=== PATIENT | female | born 1965 | race Caucasian/White ===

== ENCOUNTER 2017-11-29 18:15 | Emergency (ER) | payer MEDICAID ==
[~2017-11-29] VITALS: Ht 160 cm; Wt 65.0 kg
[~2017-11-29 18:15] MED LIST: NO HOME MEDS
[2017-11-29 18:55] LABS: CLARITY,URINE CLOUDY (Clear); COLOR,URINE AMBER (Yellow); GLUCOSE, URINE NEGATIVE (Neg); KETONES,URINE TRACE mg/dl (Neg); LEUKOCYTE ESTERASE ,URINE MODERATE (Neg); NITRITES, URINE NEGATIVE (Neg); OCCULT BLOOD,URINE TRACE-LYSED (Neg); PH,URINE 5.5 (4.8-8.0); PROTEIN,URINE NEGATIVE (Neg); UA COLLECTION TYPE CLN CATCH MIDSTREAM
[2017-11-29 19:08] LABS: BACTERIA,URINE 2+ /HPF (Neg); MUCUS STRANDS MANY /LPF (Neg); RBC,URINE 0-2 /HPF (0-2); SQUAMOUS EPITHELIAL CELL,UR MANY /LPF (FEW)
[2017-11-29 19:09] LABS: TRICHOMONAS,URINE MOD /HPF (NEGATIVE)
[2017-11-29 19:19] VITALS: BP 129/87
[2017-11-29 20:06] LABS: BASOPHILS # (AUTO) 0.1 X10'3 (0-0.2); EOSINOPHILS # (AUTO) 0.1 X10'3 (0-0.9); EOSINOPHILS % (AUTO) 1.9 % (0-6); HEMATOCRIT 41.2 % (35.0-45.0); LYMPHOCYTES # (AUTO) 1.4 X10'3 (1.1-4.8); LYMPHOCYTES % (AUTO) 23.6 % (21-51); MEAN CORPUSCULAR HEMOGLOBIN 30.2 PG (27.0-31.0); MEAN CORPUSCULAR HGB CONC 34.1 % (33.0-36.5); MEAN CORPUSCULAR VOLUME 88.7 FL (78-98); MEAN PLATELET VOLUME 6.7 FL (7.4-10.4); MONOCYTES # (AUTO) 0.7 X10'3 (0-0.9); MONOCYTES % (AUTO) 11.3 % (2-12); NEUTROPHILS # (AUTO) 3.8 X10'3 (1.8-7.7); NEUTROPHILS % (AUTO) 62.2 % (42-75); PLATELET COUNT 226 X10'3 (140-440); RED BLOOD COUNT 4.64 X10'6 (4.20-5.60); RED CELL DISTRIBUTION WIDTH 15.3 % (11.5-14.5); WHITE BLOOD COUNT 6.1 X10'3 (4.5-11.0)
[2017-11-29 20:08] LABS: CLARITY,URINE SLIGHTLY CLOUDY (Clear); COLOR,URINE YELLOW (Yellow); GLUCOSE, URINE 100 mg/dl (Neg); KETONES,URINE TRACE mg/dl (Neg); LEUKOCYTE ESTERASE ,URINE SMALL (Neg); NITRITES, URINE NEGATIVE (Neg); OCCULT BLOOD,URINE TRACE-LYSED (Neg); PH,URINE 5.5 (4.8-8.0); PROTEIN,URINE TRACE mg/dl (Neg)
[2017-11-29 20:11] LABS: UA COLLECTION TYPE CLN CATCH MIDSTREAM
[2017-11-29 20:14] LABS: URINE AMPHETAMINE SCREEN POSITIVE (Neg); URINE BARBITUATE SCREEN NEGATIVE (Neg); URINE BENZODIAZEPINES SCREEN NEGATIVE (Neg); URINE CANNABINOID SCREEN NEGATIVE (Neg); URINE COCAINE SCREEN NEGATIVE (Neg); URINE METHADONE SCREEN NEGATIVE (Neg); URINE OPIATE SCREEN NEGATIVE (Neg); URINE PHENCYCLIDINE SCREEN NEGATIVE (Neg)
[2017-11-29 20:20] LABS: ALANINE AMINOTRANSFERASE 118 U/L (12-78); ALBUMIN/GLOBULIN RATIO 0.6 (1.1-1.5); ALKALINE PHOSPHATASE 241 IU/L (46-116); ANION GAP 8 (8-16); ASPARTATE AMINO TRANSFERASE 323 U/L (10-37); BILIRUBIN,TOTAL 0.4 MG/DL (0.1-1.0); BLOOD UREA NITROGEN 6 MG/DL (7-18); BUN/CREATININE RATIO 7.9 (6.6-38.0); CALCIUM 9.3 MG/DL (8.5-10.1); CHLORIDE 101 MMOL/L (99-107); CREATININE 0.76 MG/DL (0.40-0.90); LIPASE 143 U/L (73-393); POTASSIUM 3.8 MMOL/L (3.5-5.1); SODIUM 136 MMOL/L (135-145); TOTAL CARBON DIOXIDE 26.7 MMOL/L (24-32); TOTAL PROTEIN 8.2 G/DL (6.4-8.2); eGFR 80 ML/MIN
[2017-11-29 20:21] LABS: GLUCOSE 113 MG/DL (70-104)
[2017-11-29] MEDS ORDERED: SULF1TAB49 PO (20:34)
[2017-11-29 20:47] LABS: BACTERIA,URINE 2+ /HPF (Neg); MUCUS STRANDS MANY /LPF (Neg); RBC,URINE 0-2 /HPF (0-2); SQUAMOUS EPITHELIAL CELL,UR MANY /LPF (FEW); TRICHOMONAS,URINE FEW /HPF (NEGATIVE)
== END 2017-11-29 20:58 | disposition home or self-care (01) ==
LOC: ER 18:16
DX: N39.0 Urinary tract infection, site not specified (principal); R74.8 Abnormal levels of other serum enzymes; K21.9 Gastro-esophageal reflux disease without esophagitis; Z90.49 Acquired absence of other specified parts of digestive tract; F15.90 Other stimulant use, unspecified, uncomplicated; Z88.1 Allergy status to other antibiotic agents; Z88.5 Allergy status to narcotic agent; Z88.8 Allergy status to other drugs, medicaments and biological substances; Z79.899 Other long term (current) drug therapy; Z60.2 Problems related to living alone; Z56.0 Unemployment, unspecified
CPT/HCPCS: 36415; 80053; 80305; 81001; 83690; 85025; 99284

== ENCOUNTER 2019-01-03 10:12 | Emergency (ER) | payer MEDICAID ==
[~2019-01-03] VITALS: Ht 160 cm; Wt 65.0 kg
[2019-01-03 10:23] VITALS: BP 128/97
[2019-01-03 10:48] LABS: CLARITY,URINE SLIGHTLY CLOUDY (Clear); COLOR,URINE YELLOW (Yellow); GLUCOSE, URINE NEGATIVE (Neg); KETONES,URINE NEGATIVE (Neg); LEUKOCYTE ESTERASE ,URINE NEGATIVE (Neg); NITRITES, URINE NEGATIVE (Neg); OCCULT BLOOD,URINE NEGATIVE (Neg); PROTEIN,URINE TRACE mg/dl (Neg)
[2019-01-03 10:49] LABS: UA COLLECTION TYPE CLN CATCH MIDSTREAM
[2019-01-03] MEDS ORDERED: dexamethasone sod phosphate 10mg/ml inj IM STA (10:59)
[2019-01-03 11:00] LABS: MUCUS STRANDS MANY /LPF (Neg); SQUAMOUS EPITHELIAL CELL,UR MANY /LPF (FEW)
[2019-01-03 11:01] LABS: URINE HCG NEGATIVE (NEG)
[2019-01-03 11:02] LABS: BACTERIA,URINE 1+ /HPF (Neg); RBC,URINE 0-2 /HPF (0-2); TRANSITIONAL EPI CELLS,URINE FEW /HPF; WBC,URINE 0-4 /HPF (0-4)
[2019-01-03] MEDS ORDERED: METH4TAB81 PO (11:05)
[2019-01-03] MEDS ORDERED: TRAM50TA2 PO (11:05)
== END 2019-01-03 11:44 | disposition home or self-care (01) ==
LOC: ER 10:13
DX: S29.019A Strain of muscle and tendon of unspecified wall of thorax, initial encounter (principal); M54.5 Low back pain; K21.9 Gastro-esophageal reflux disease without esophagitis; F41.9 Anxiety disorder, unspecified; F32.9 Major depressive disorder, single episode, unspecified; F15.90 Other stimulant use, unspecified, uncomplicated; Z98.890 Other specified postprocedural states; Z90.49 Acquired absence of other specified parts of digestive tract; Z88.1 Allergy status to other antibiotic agents; Z88.5 Allergy status to narcotic agent; Z88.8 Allergy status to other drugs, medicaments and biological substances; Z56.0 Unemployment, unspecified; Z60.2 Problems related to living alone; X50.1XXA Overexertion from prolonged static or awkward postures, initial encounter; Y93.89 Activity, other specified; Y92.89 Other specified places as the place of occurrence of the external cause; Y99.8 Other external cause status
CPT/HCPCS: 81001; 81025; 96372; 99283; J1100

== ENCOUNTER 2019-04-26 10:12 | Emergency (ER) | payer MEDICAID ==
[~2019-04-26] VITALS: Ht 160 cm; Wt 66.2 kg
[~2019-04-26 10:12] MED LIST changes: +METH4TAB81 PO
[2019-04-26] MEDS ORDERED: HYDROcodone/acetaminophen 10/325mg tab PO ONE ×2 (11:55→15:10)
[2019-04-26] MEDS ORDERED: morphine 4 MG/ML inj SYRINge IM ONE (11:55)
--- NOTE | 2019-04-26 12:03 | NUR ---
PT REFUSING PAIN MEDS. PT REPORTS THAT SHE WAS GIVEN A NORCO AT APROX 10:[address] STAFFORD OFFICE.
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
[2019-04-26] MEDS ORDERED: normal saline 1000ML IV soln IVB ONE (12:35)
[2019-04-26] MEDS ORDERED: iohexol 300mg/ml 100ml inj. ONE (12:58)
[2019-04-26] MEDS ORDERED: HYDR-4353 PO (15:13)
[2019-04-26 15:23] VITALS: BP 142/93
[2019-04-26 15:25] LABS: BASOPHILS % (AUTO) 1.3 % (0-1); EOSINOPHILS # (AUTO) 0.1 X10'3 (0-0.9); EOSINOPHILS % (AUTO) 3.3 % (0-6); HEMOGLOBIN 12.5 g/dl (12.0-16.0); LYMPHOCYTES % (AUTO) 27.4 % (21-51); MEAN CORPUSCULAR HEMOGLOBIN 32.6 PG (27.0-31.0); MEAN CORPUSCULAR HGB CONC 34.6 g/dL (33.0-36.5); MEAN CORPUSCULAR VOLUME 94.4 FL (78-98); MEAN PLATELET VOLUME 7.3 FL (7.4-10.4); MONOCYTES # (AUTO) 0.4 X10'3 (0-0.9); MONOCYTES % (AUTO) 11.9 % (2-12); NEUTROPHILS # (AUTO) 2.1 X10'3 (1.8-7.7); NEUTROPHILS % (AUTO) 56.1 % (42-75); PLATELET COUNT 149 X10'3 (140-440); RED BLOOD COUNT 3.81 X10'6 (4.20-5.60); RED CELL DISTRIBUTION WIDTH 14.9 % (11.5-14.5); WHITE BLOOD COUNT 3.7 X10'3 (4.5-11.0)
== END 2019-04-26 15:25 | disposition home or self-care (01) ==
LOC: ER 10:14
DX: S30.23XA Contusion of vagina and vulva, initial encounter (principal); N95.0 Postmenopausal bleeding; K21.9 Gastro-esophageal reflux disease without esophagitis; F41.9 Anxiety disorder, unspecified; F32.9 Major depressive disorder, single episode, unspecified; F10.99 Alcohol use, unspecified with unspecified alcohol-induced disorder; F15.90 Other stimulant use, unspecified, uncomplicated; Z86.14 Personal history of Methicillin resistant Staphylococcus aureus infection; Z90.49 Acquired absence of other specified parts of digestive tract; Z98.890 Other specified postprocedural states; Z60.2 Problems related to living alone; Z56.0 Unemployment, unspecified; Z88.1 Allergy status to other antibiotic agents; Z88.5 Allergy status to narcotic agent; Z79.899 Other long term (current) drug therapy; W22.8XXA Striking against or struck by other objects, initial encounter; Y93.39 Activity, other involving climbing, rappelling and jumping off; Y92.89 Other specified places as the place of occurrence of the external cause; Y99.8 Other external cause status; Y90.9 Presence of alcohol in blood, level not specified
CPT/HCPCS: 36415; 72193; 85025; 99284; J2270; J7030; Q9967

== ENCOUNTER 2019-05-01 15:07 | Emergency (ER) | payer MEDICAID ==
[~2019-05-01] VITALS: Ht 160 cm; Wt 67.0 kg
[~2019-05-01 15:07] MED LIST changes: +HYDR-4353 PO
[2019-05-01 16:26] LABS: BASOPHILS # (AUTO) 0.1 X10'3 (0-0.2); EOSINOPHILS # (AUTO) 0.1 X10'3 (0-0.9); EOSINOPHILS % (AUTO) 1.2 % (0-6); HEMATOCRIT 36.6 % (35.0-45.0); HEMOGLOBIN 12.5 g/dl (12.0-16.0); LYMPHOCYTES # (AUTO) 0.8 X10'3 (1.1-4.8); LYMPHOCYTES % (AUTO) 18.7 % (21-51); MEAN CORPUSCULAR HEMOGLOBIN 32.1 PG (27.0-31.0); MEAN CORPUSCULAR HGB CONC 34.1 g/dL (33.0-36.5); MEAN CORPUSCULAR VOLUME 94.1 FL (78-98); MEAN PLATELET VOLUME 6.6 FL (7.4-10.4); MONOCYTES # (AUTO) 0.5 X10'3 (0-0.9); MONOCYTES % (AUTO) 12.8 % (2-12); NEUTROPHILS # (AUTO) 2.8 X10'3 (1.8-7.7); NEUTROPHILS % (AUTO) 65.3 % (42-75); PLATELET COUNT 170 X10'3 (140-440); RED BLOOD COUNT 3.89 X10'6 (4.20-5.60); RED CELL DISTRIBUTION WIDTH 15.1 % (11.5-14.5); WHITE BLOOD COUNT 4.2 X10'3 (4.5-11.0)
[2019-05-01 16:40] LABS: ALANINE AMINOTRANSFERASE 34 U/L (12-78); ALBUMIN 2.7 G/DL (3.4-5.0); ALBUMIN/GLOBULIN RATIO 0.5 (1.1-1.5); ALKALINE PHOSPHATASE 208 IU/L (46-116); AMYLASE 36 U/L (25-115); ANION GAP 10 (8-16); ASPARTATE AMINO TRANSFERASE 64 U/L (10-37); BILIRUBIN,TOTAL 0.5 MG/DL (0.1-1.0); BLOOD UREA NITROGEN 6 MG/DL (7-18); BUN/CREATININE RATIO 8.5 (6.6-38.0); CHLORIDE 100 MMOL/L (99-107); CREATININE 0.71 MG/DL (0.40-0.90); LIPASE 138 U/L (73-393); POTASSIUM 3.4 MMOL/L (3.5-5.1); SODIUM 133 MMOL/L (135-145); TOTAL CARBON DIOXIDE 22.9 MMOL/L (24-32); TOTAL PROTEIN 8.6 G/DL (6.4-8.2); eGFR 86 ML/MIN
[2019-05-01 16:44] LABS: GLUCOSE 143 MG/DL (70-104)
[2019-05-01 18:17] LABS: CLARITY,URINE SLIGHTLY CLOUDY (Clear); COLOR,URINE AMBER (Yellow); GLUCOSE, URINE NEGATIVE (Neg); KETONES,URINE NEGATIVE (Neg); LEUKOCYTE ESTERASE ,URINE MODERATE (Neg); NITRITES, URINE POSITIVE (Neg); OCCULT BLOOD,URINE MODERATE (Neg); PROTEIN,URINE NEGATIVE (Neg); UA COLLECTION TYPE CLN CATCH MIDSTREAM; URINE HCG NEGATIVE (NEG)
[2019-05-01 18:45] LABS: BACTERIA,URINE 3+ /HPF (Neg); SQUAMOUS EPITHELIAL CELL,UR MODERATE /LPF (FEW); WBC,URINE 50-100 /HPF (0-4)
[2019-05-01 18:46] LABS: MUCUS STRANDS FEW /LPF (Neg); WBC CLUMPS,URINE MODERATE /HPF (NEGATIVE)
[2019-05-01 19:58] VITALS: BP 127/77
[2019-05-01] MEDS ORDERED: CefTRIAXone 2gm/D5W 50ml 50 ML IV ONE (20:05)
[2019-05-01] MEDS ORDERED: CEPH500C5 PO (20:11)
[2019-05-01] MEDS ORDERED: ondansetron/PF 4mg/2ml inj IV ONE (20:15)
[2019-05-01] MEDS ORDERED: ringers solution, lacted 1,000 ML IV ONE (20:20)
== END 2019-05-01 21:02 | disposition home or self-care (01) ==
LOC: ER 15:08
DX: N39.0 Urinary tract infection, site not specified (principal); K21.9 Gastro-esophageal reflux disease without esophagitis; F15.90 Other stimulant use, unspecified, uncomplicated; Z56.0 Unemployment, unspecified; Z90.49 Acquired absence of other specified parts of digestive tract; Z98.890 Other specified postprocedural states; Z88.1 Allergy status to other antibiotic agents; Z88.5 Allergy status to narcotic agent; Z79.899 Other long term (current) drug therapy
CPT/HCPCS: 36415; 74176; 80053; 81001; 81025; 82150; 83690; 85025; 87077; 87088; 87186; 96365; 96375; 99284; J0696; J2405; J7030; J7120

== ENCOUNTER 2019-06-08 08:37 | Inpatient (IN) | payer MEDICAID ==
[2019-06-06 14:32] LABS: CLARITY,URINE SLIGHTLY CLOUDY (Clear); COLOR,URINE AMBER (Yellow); GLUCOSE, URINE NEGATIVE (Neg); KETONES,URINE TRACE mg/dl (Neg); NITRITES, URINE NEGATIVE (Neg); OCCULT BLOOD,URINE TRACE-INTACT (Neg); PH,URINE 5.5 (4.8-8.0); PROTEIN,URINE TRACE mg/dl (Neg)
[2019-06-06 14:38] LABS: BASOPHILS # (AUTO) 0.1 X10'3 (0-0.2); BASOPHILS % (AUTO) 1.9 % (0-1); EOSINOPHILS # (AUTO) 0.8 X10'3 (0-0.9); EOSINOPHILS % (AUTO) 11.4 % (0-6); LYMPHOCYTES # (AUTO) 1.7 X10'3 (1.1-4.8); LYMPHOCYTES % (AUTO) 24.6 % (21-51); MEAN CORPUSCULAR HEMOGLOBIN 31.8 PG (27.0-31.0); MEAN CORPUSCULAR HGB CONC 34.7 g/dL (33.0-36.5); MEAN CORPUSCULAR VOLUME 91.8 FL (78-98); MONOCYTES # (AUTO) 0.6 X10'3 (0-0.9); MONOCYTES % (AUTO) 9.2 % (2-12); NEUTROPHILS # (AUTO) 3.7 X10'3 (1.8-7.7); NEUTROPHILS % (AUTO) 52.9 % (42-75); PRE OP HEMATOCRIT 40.8 % (35.0-45.0); PRE OP HEMOGLOBIN 14.1 g/dL (12.0-16.0); PRE OP PLATELET COUNT 202 X10'3 (140-440); RED BLOOD COUNT 4.44 X10'6 (4.20-5.60); RED CELL DISTRIBUTION WIDTH 14.7 % (11.5-14.5)
[2019-06-06 14:42] LABS: LEUKOCYTE ESTERASE ,URINE NEGATIVE (Neg); UA COLLECTION TYPE CLN CATCH MIDSTREAM
[2019-06-06 14:46] LABS: PRE OP INR 1.1 INR; PRE OP PROTIME 11.4 SECONDS (9.0-12.0)
[2019-06-06 14:47] LABS: ALBUMIN 3.7 G/DL (3.4-5.0); ALBUMIN/GLOBULIN RATIO 0.6 (1.1-1.5); ALKALINE PHOSPHATASE 163 IU/L (46-116); BLOOD UREA NITROGEN 14 MG/DL (7-18); BUN/CREATININE RATIO 14.7 (6.6-38.0); CHLORIDE 102 MMOL/L (99-107); CREATININE 0.95 MG/DL (0.40-0.90); PRE OP ANION GAP 9 (8-16); PRE OP BILIRUB, TOTAL 0.6 MG/DL (0.0-1.0); PRE OP POTASSIUM 4.3 MMOL/L (3.4-5.1); PRE OP SODIUM 136 MMOL/L (135-145); TOTAL CARBON DIOXIDE 25.4 MMOL/L (24-32); TOTAL PROTEIN 9.6 G/DL (6.4-8.2); eGFR 62 ML/MIN
[2019-06-06 14:48] LABS: PRE OP GLUCOSE 92 MG/DL (70-104)
[2019-06-06 14:49] LABS: PRE OP AST 238 U/L (10-37)
[2019-06-06 14:50] LABS: PRE OP ALT 144 U/L (30-65)
[2019-06-06 14:55] LABS: MUCUS STRANDS MANY /LPF (Neg); SQUAMOUS EPITHELIAL CELL,UR MANY /LPF (FEW); TRANSITIONAL EPI CELLS,URINE FEW /HPF
[2019-06-06 14:57] LABS: YEAST FEW /HPF (NEGATIVE)
[2019-06-06 14:58] LABS: BACTERIA,URINE 1+ /HPF (Neg); WBC,URINE 0-4 /HPF (0-4)
[~2019-06-08] VITALS: Ht 160 cm; Wt 63.5 kg
[2019-06-08] VITALS (20 sets, daily range): BP systolic 100–149; BP diastolic 60–94
[~2019-06-08 08:37] MED LIST changes: -HYDR-4353 PO; -METH4TAB81 PO; -NO HOME MEDS; +PANT-47 PO; +SULF1TAB49 PO; +ceFOXitin sod/dextrose 2g/50ml 50 ML IV ONE; +famotidine 10mg tablet PO ONE; +meperidine/PF 25mg/ml syringe IV PRN; +ondansetron/PF 4mg/2ml inj IV PRN; +proCHLORperazine 10 MG/2 ml inj IV PRN; +ringers solution, lacted 1,000 ML IV SCH
[2019-06-08] MEDS ORDERED: aprepitant 40mg capsule PO ONE (09:40)
[2019-06-08] MEDS: ringers solution, lacted 1,000 ML IV SCH (09:48)
[2019-06-08] MEDS ORDERED: ceFAZolin 1000mg inj ONE (12:05)
[2019-06-08] MEDS ORDERED: BUPIVAcaine 0.5% inj/PF 30 ML ONE (12:05)
[2019-06-08] MEDS ORDERED: ondansetron/PF 4mg/2ml inj ONE (12:25)
[2019-06-08] MEDS ORDERED: sevoflurane 250ml liquid IH ONE (12:25)
[2019-06-08] MEDS ORDERED: dexamethasone sod phosphate 10mg/ml inj ONE (12:25)
[2019-06-08] MEDS ORDERED: neostigmine methylsulfate 1 MG/ML 10ml vial ONE (12:25)
[2019-06-08] MEDS ORDERED: glycopyrrolate 0.2mg/ml inj ONE (12:25)
[2019-06-08] MEDS ORDERED: rocuronium 10mg/ml inj IV ONE ×2 (12:25→15:10)
[2019-06-08] MEDS ORDERED: fentaNYL /PF 50mcg/ml 5ml ampule ONE (12:41)
[2019-06-08] MEDS ORDERED: midazolam 2 mg/2 ml injection ONE (12:41)
[2019-06-08] MEDS ORDERED: propofol inj 20 ML IV ONE (12:44)
[2019-06-08] MEDS ORDERED: LIDOcaine 2% (20mg/ml) 5ml vial ONE (12:44)
[2019-06-08] MEDS ORDERED: ondansetron/PF 4mg/2ml inj IV PRN (15:25)
[2019-06-08] MEDS ORDERED: CADD PCA waste documentation MC PRN (15:25)
[2019-06-08] MEDS ORDERED: naloxone 0.4 mg/ml inj IV PRN (15:25)
[2019-06-08] MEDS ORDERED: meperidine/PF 50mg/ml syringe ONE (15:27)
--- NOTE | 2019-06-08 15:40 | NUR ---
Received from OR via BED, accompanied by Anesthesiologist DR PIPER and report given by Anesthesiolgist. PATIENT A&OX4, DENIES PAIN, V/S WNL, NEUROVASCULAR CHECKS INTACT, 20G PIV LUE, SCD ON, ISLAND DRESSING TO ABDOMEN MIDLINE CDI. F/C DRAINING REDISH YELLOW URINE.
[2019-06-08] MEDS: meperidine/PF 25mg/ml syringe IV PRN ×2 (16:05→16:50)
--- NOTE | 2019-06-08 16:21 | NUR ---
received report from recovery. pt on their way
[2019-06-08] MEDS: HYDROmorphone/NS 1 mg/ml CADD 50 ML IV SCH ×5 (16:45→23:20)
--- NOTE | 2019-06-08 17:00 | NUR ---
PATIENT A&OX4, STATES PAIN CONTROL, V/S WNL, NEUROVASCULAR CHECKS INTACT, 20G PIV LUE, SCD ON, ISLAND DRESSING TO ABDOMEN MIDLINE CDI. F/C DRAINING REDISH YELLOW URINE. PATIENT TAKEN TO 349A WITH ALL BELONGINGS AND HOOKED UP TO MONITORS IN ROOM AND REPORT GIVEN TO RN WHO HAS TAKEN OVER PATIENT CARE.
[2019-06-08] MEDS ORDERED: BACDS PO (17:12)
--- NOTE | 2019-06-08 17:15 | NUR ---
PT CAME TO FLOOR.STARTED V/S, SET UP PUMP, CHECKED CADD, AND BROUGHT HER WATER.
--- NOTE | 2019-06-08 17:59 | NUR ---
Problems reprioritized. Patient report given, questions answered & plan of care reviewed with SONIA RUIZ.
[2019-06-08] MEDS: pantoprazole 40mg Tablet.DR PO SCH (19:36)
[2019-06-09] VITALS: BP 113/70
[2019-06-09] MEDS: HYDROmorphone/NS 1 mg/ml CADD 50 ML IV SCH ×12 (00:50→23:00)
--- NOTE | 2019-06-09 06:12 | NUR ---
Problems reprioritized. Patient report given, questions answered & plan of care reviewed with JOSEPH Zaman.
[2019-06-09] MEDS: ringers solution, lacted 1,000 ML IV SCH (06:53)
[2019-06-09 07:30] VITALS: BP 114/69
[2019-06-09] MEDS: sulfamethoxazole/trimethoprim DS (800/160mg) tablet PO SCH (07:31)
[2019-06-09] MEDS: pantoprazole 40mg Tablet.DR PO SCH ×2 (07:31→19:12)
[2019-06-09 11:00] VITALS: BP 124/74
--- NOTE | 2019-06-09 16:01 | NUR ---
PRESSURE ULCER EDUCATION: DEFINITION: A pressure ulcer is an area of skin that breaks down when you stay in one position too long. The constant pressure against the skin reduces the blood flow to that area and the affected tissue dies. CAUSES: "Being bedridden or in a wheelchair "Fragile skin "Having a chronic condition, such as diabetes or vascular disease "Inability to move certain parts of your body without assistance "Older age "Incontinence of urine or stool SYMPTOMS: "A reddened area that DOES NOT turn white when pressed on - this can be the beginning of a pressure ulcer "A blister, deep sore or a crater - these can be advanced pressure ulcers FIRST AID: "Relieve the pressure on this area "Keep the area clean and dry "Call your primary doctor if you see any of the above symptoms "DO NOT massage the area "DO NOT use a donut shaped or ring shaped pillow- these actually interfere with the blood flow and cause complications PREVENTION: "Check for pressure ulcers everyday "Change position at least every two hours to relieve pressure "Use items that help relieve pressure- pillows, sheepskin, foam padding, and powders. "Keep skin clean and dry "Eat healthy well balanced meals "Exercise daily IF YOU SEE ANY OF THESE SYMPTOMS WHILE IN THE HOSPITAL - TELL YOUR NURSE IMMEDIATELY. IF YOU SEE ANY OF THESE SYMPTOMS WHILE AT HOME OR HAVE ANY QUESTIONS OR CONCERNS ABOUT PRESSURE ULCERS - CALL YOUR PRIMARY DOCTOR IMMEDIATELY. WOUND VAC EDUCATION PROVIDED BY WOUND CARE 1. Patient instructed to call the Wound Center or their Home Health Agency immediately if: * They notice a change in the color or amount of the fluid in the canister. * Their wound looks more red than usual or has a foul smell. * The skin around their wound looks reddened or irritated. * The dressing feels loose or appears to be loose. * They experience any increase or changes in their pain. * The alarm will not turn off. 2. Patient instructed that they should not be disconnected from suction for more than 2 hours at a time. * If they are not able to get the suction back on, they need to remove the dressing and take all of the foam out of the wound. * Then moisten sterile gauze with normal saline and place on/in the wound. * Change the dressing once a day until arrangements have been made to replace the wound vac dressing. 3. Patient instructed to turn the wound vac machine OFF and call 911 or go to the ED immediately if their canister fills rapidly with blood. 4. If any of these occur while in the hospital tell a nurse immediately. Addendum: 06/09/19 at 1605 by Sommer Forman RN Amended: Links added.
[2019-06-09 18:00] VITALS: BP 120/87
--- NOTE | 2019-06-09 18:19 | NUR ---
Received report from JOSEPH Zaman. Patient is awake and alert on room air, in no apparent distress. Call light and items of frequent use within reach. Will continue to monitor.
--- NOTE | 2019-06-09 18:38 | NUR ---
Problems reprioritized. Patient report given, questions answered & plan of care reviewed with Betzaida RUIZ.
--- NOTE | 2019-06-09 18:43 | NUR ---
Problems reprioritized. Patient report given, questions answered & plan of care reviewed with Betzaida RUIZ.
[2019-06-10] VITALS: BP 111/90
[2019-06-10] MEDS: HYDROmorphone/NS 1 mg/ml CADD 50 ML IV SCH ×12 (01:00→23:00)
--- NOTE | 2019-06-10 06:09 | NUR ---
Problems reprioritized. Patient report given, questions answered & plan of care reviewed with JOSEPH Zaman.
[2019-06-10 06:16] LABS: BASOPHILS # (AUTO) 0.1 X10'3 (0-0.2); BASOPHILS % (AUTO) 0.6 % (0-1); EOSINOPHILS % (AUTO) 0.1 % (0-6); HEMATOCRIT 32.7 % (35.0-45.0); HEMOGLOBIN 11.1 g/dl (12.0-16.0); LYMPHOCYTES # (AUTO) 2.4 X10'3 (1.1-4.8); LYMPHOCYTES % (AUTO) 20.4 % (21-51); MEAN CORPUSCULAR HEMOGLOBIN 32.1 PG (27.0-31.0); MEAN CORPUSCULAR HGB CONC 33.9 g/dL (33.0-36.5); MEAN CORPUSCULAR VOLUME 94.6 FL (78-98); MEAN PLATELET VOLUME 7.7 FL (7.4-10.4); MONOCYTES # (AUTO) 1.3 X10'3 (0-0.9); MONOCYTES % (AUTO) 11.2 % (2-12); NEUTROPHILS # (AUTO) 8.1 X10'3 (1.8-7.7); NEUTROPHILS % (AUTO) 67.7 % (42-75); PLATELET COUNT 212 X10'3 (140-440); RED BLOOD COUNT 3.45 X10'6 (4.20-5.60); RED CELL DISTRIBUTION WIDTH 14.8 % (11.5-14.5)
--- NOTE | 2019-06-10 06:35 | NUR ---
Patient in room [facility] 349. I have received report from Betzaida RUIZ and had the opportunity to ask questions and assume patient care.
[2019-06-10 06:48] LABS: ALBUMIN 2.9 G/DL (3.4-5.0); ANION GAP 9 (8-16); BLOOD UREA NITROGEN 17 MG/DL (7-18); BUN/CREATININE RATIO 16.7 (6.6-38.0); CALCIUM 8.4 MG/DL (8.5-10.1); CHLORIDE 98 MMOL/L (99-107); CREATININE 1.02 MG/DL (0.40-0.90); POTASSIUM 3.8 MMOL/L (3.5-5.1); SODIUM 132 MMOL/L (135-145); TOTAL CARBON DIOXIDE 25.5 MMOL/L (24-32); eGFR 57 ML/MIN
[2019-06-10 06:50] LABS: GLUCOSE 110 MG/DL (70-104)
[2019-06-10 07:25] VITALS: BP 118/73
[2019-06-10] MEDS: sulfamethoxazole/trimethoprim DS (800/160mg) tablet PO SCH (07:42)
[2019-06-10] MEDS: pantoprazole 40mg Tablet.DR PO SCH ×2 (07:42→20:35)
[2019-06-10 11:00] VITALS: BP_SYST 109; BP_SYST 135; BP_DIAS 70; BP_DIAS 80
[2019-06-10 18:30] VITALS: BP 121/73
--- NOTE | 2019-06-10 18:37 | NUR ---
Problems reprioritized. Patient report given, questions answered & plan of care reviewed with Alcira RUIZ.
--- NOTE | 2019-06-10 18:49 | NUR ---
Patient in room [facility] 349. I have received report from JOSEPH Zaman and had the opportunity to ask questions and assume patient care.
[2019-06-11 00:15] VITALS: BP_SYST 114; BP_SYST 128; BP_DIAS 72; BP_DIAS 82
[2019-06-11] MEDS: HYDROmorphone/NS 1 mg/ml CADD 50 ML IV SCH ×12 (01:00→23:00)
[2019-06-11] MEDS: ringers solution, lacted 1,000 ML IV SCH (03:37)
[2019-06-11 05:33] LABS: ALBUMIN 2.6 G/DL (3.4-5.0); ANION GAP 5 (8-16); BLOOD UREA NITROGEN 11 MG/DL (7-18); BUN/CREATININE RATIO 12.1 (6.6-38.0); CALCIUM 8.3 MG/DL (8.5-10.1); CHLORIDE 99 MMOL/L (99-107); CREATININE 0.91 MG/DL (0.40-0.90); GLUCOSE 102 MG/DL (70-104); POTASSIUM 3.7 MMOL/L (3.5-5.1); SODIUM 131 MMOL/L (135-145); TOTAL CARBON DIOXIDE 26.9 MMOL/L (24-32); eGFR 65 ML/MIN
[2019-06-11 05:48] LABS: BASOPHILS # (AUTO) 0.1 X10'3 (0-0.2); BASOPHILS % (AUTO) 0.7 % (0-1); EOSINOPHILS # (AUTO) 0.2 X10'3 (0-0.9); EOSINOPHILS % (AUTO) 2.2 % (0-6); HEMATOCRIT 29.8 % (35.0-45.0); HEMOGLOBIN 10.3 g/dl (12.0-16.0); LYMPHOCYTES % (AUTO) 25.1 % (21-51); MEAN CORPUSCULAR HEMOGLOBIN 32.8 PG (27.0-31.0); MEAN CORPUSCULAR HGB CONC 34.6 g/dL (33.0-36.5); MEAN CORPUSCULAR VOLUME 94.8 FL (78-98); MEAN PLATELET VOLUME 7.2 FL (7.4-10.4); MONOCYTES % (AUTO) 12.9 % (2-12); NEUTROPHILS # (AUTO) 4.7 X10'3 (1.8-7.7); NEUTROPHILS % (AUTO) 59.1 % (42-75); PLATELET COUNT 172 X10'3 (140-440); RED BLOOD COUNT 3.15 X10'6 (4.20-5.60); RED CELL DISTRIBUTION WIDTH 14.5 % (11.5-14.5)
--- NOTE | 2019-06-11 06:30 | NUR ---
Problems reprioritized. Patient report given, questions answered & plan of care reviewed with JOSEPH Galaviz.
[2019-06-11] MEDS: pantoprazole 40mg Tablet.DR PO SCH ×2 (09:09→19:16)
[2019-06-11] MEDS: sulfamethoxazole/trimethoprim DS (800/160mg) tablet PO SCH (09:09)
--- NOTE | 2019-06-11 09:13 | NUR ---
Pt. declines to have this intervention done for her- she performs pericare independently Addendum: 06/11/19 at 0916 by Anastacia Pollack RN Amended: Links added.
[2019-06-11 09:30] VITALS: BP 135/78
[2019-06-11 11:24] VITALS: BP 131/96
[2019-06-11 18:00] VITALS: BP 152/81
--- NOTE | 2019-06-11 18:34 | NUR ---
Gave report to Kale RUIZ. Pt. in room watch TV with no needs at this time. Fluids and CADD running per order.
[2019-06-12] VITALS: BP 140/73
[2019-06-12] MEDS: HYDROmorphone/NS 1 mg/ml CADD 50 ML IV SCH ×12 (01:00→23:00)
[2019-06-12 05:22] LABS: ALBUMIN 2.7 G/DL (3.4-5.0); ANION GAP 5 (8-16); BLOOD UREA NITROGEN 7 MG/DL (7-18); BUN/CREATININE RATIO 8.6 (6.6-38.0); CALCIUM 8.5 MG/DL (8.5-10.1); CHLORIDE 101 MMOL/L (99-107); CREATININE 0.81 MG/DL (0.40-0.90); GLUCOSE 91 MG/DL (70-104); POTASSIUM 3.9 MMOL/L (3.5-5.1); SODIUM 134 MMOL/L (135-145); TOTAL CARBON DIOXIDE 27.8 MMOL/L (24-32); eGFR 74 ML/MIN
[2019-06-12 06:17] LABS: BASOPHILS % (AUTO) 0.5 % (0-1); EOSINOPHILS # (AUTO) 0.5 X10'3 (0-0.9); EOSINOPHILS % (AUTO) 7.8 % (0-6); HEMATOCRIT 30.2 % (35.0-45.0); HEMOGLOBIN 10.6 g/dl (12.0-16.0); LYMPHOCYTES # (AUTO) 1.4 X10'3 (1.1-4.8); LYMPHOCYTES % (AUTO) 21.4 % (21-51); MEAN CORPUSCULAR HEMOGLOBIN 32.7 PG (27.0-31.0); MEAN CORPUSCULAR HGB CONC 35.2 g/dL (33.0-36.5); MEAN CORPUSCULAR VOLUME 92.7 FL (78-98); MEAN PLATELET VOLUME 7.1 FL (7.4-10.4); MONOCYTES # (AUTO) 0.7 X10'3 (0-0.9); MONOCYTES % (AUTO) 10.5 % (2-12); NEUTROPHILS # (AUTO) 3.8 X10'3 (1.8-7.7); NEUTROPHILS % (AUTO) 59.8 % (42-75); PLATELET COUNT 218 X10'3 (140-440); RED BLOOD COUNT 3.25 X10'6 (4.20-5.60); RED CELL DISTRIBUTION WIDTH 14.5 % (11.5-14.5); WHITE BLOOD COUNT 6.4 X10'3 (4.5-11.0)
--- NOTE | 2019-06-12 06:18 | NUR ---
Patient in room [facility] 349. I have received report from Kale RUIZ and had the opportunity to ask questions and assume patient care.
--- NOTE | 2019-06-12 06:27 | NUR ---
Problems reprioritized. Patient report given, questions answered & plan of care reviewed with Aleta RUIZ.
[2019-06-12] MEDS: pantoprazole 40mg Tablet.DR PO SCH ×2 (07:51→20:52)
[2019-06-12] MEDS: sulfamethoxazole/trimethoprim DS (800/160mg) tablet PO SCH (07:51)
[2019-06-12 07:55] VITALS: BP 131/78
--- NOTE | 2019-06-12 08:05 | NUR ---
BM morning of admit at home Addendum: 06/12/19 at 0808 by Aleta Ching RN Amended: Links added.
[2019-06-12 11:44] VITALS: BP 139/76
--- NOTE | 2019-06-12 18:15 | NUR ---
Problems reprioritized. Patient report given, questions answered & plan of care reviewed with Joyce RUIZ
--- NOTE | 2019-06-12 18:30 | NUR ---
Patient in room [facility] 349. I have received report from Aleta RUIZ and had the opportunity to ask questions and assume patient care.
[2019-06-12 19:00] VITALS: BP 142/84
[2019-06-12] MEDS ORDERED: guaiFENesin/DM 10ml UD oral syrup PO PRN (19:05)
[2019-06-13] VITALS: BP 151/89
[2019-06-13] MEDS: HYDROmorphone/NS 1 mg/ml CADD 50 ML IV SCH ×9 (01:00→16:51)
[2019-06-13] MEDS: ringers solution, lacted 1,000 ML IV SCH (01:27)
[2019-06-13 05:15] LABS: BASOPHILS % (AUTO) 0.7 % (0-1); EOSINOPHILS # (AUTO) 0.7 X10'3 (0-0.9); EOSINOPHILS % (AUTO) 11.4 % (0-6); HEMATOCRIT 30.1 % (35.0-45.0); HEMOGLOBIN 10.4 g/dl (12.0-16.0); LYMPHOCYTES # (AUTO) 1.2 X10'3 (1.1-4.8); LYMPHOCYTES % (AUTO) 19.1 % (21-51); MEAN CORPUSCULAR HEMOGLOBIN 32.4 PG (27.0-31.0); MEAN CORPUSCULAR HGB CONC 34.7 g/dL (33.0-36.5); MEAN CORPUSCULAR VOLUME 93.4 FL (78-98); MEAN PLATELET VOLUME 6.9 FL (7.4-10.4); MONOCYTES # (AUTO) 0.8 X10'3 (0-0.9); MONOCYTES % (AUTO) 13.6 % (2-12); NEUTROPHILS # (AUTO) 3.4 X10'3 (1.8-7.7); NEUTROPHILS % (AUTO) 55.2 % (42-75); PLATELET COUNT 231 X10'3 (140-440); RED BLOOD COUNT 3.22 X10'6 (4.20-5.60); RED CELL DISTRIBUTION WIDTH 14.4 % (11.5-14.5); WHITE BLOOD COUNT 6.2 X10'3 (4.5-11.0)
[2019-06-13 05:16] LABS: ALBUMIN 2.6 G/DL (3.4-5.0); ANION GAP 4 (8-16); BLOOD UREA NITROGEN 7 MG/DL (7-18); BUN/CREATININE RATIO 8.5 (6.6-38.0); CALCIUM 8.5 MG/DL (8.5-10.1); CHLORIDE 102 MMOL/L (99-107); CREATININE 0.82 MG/DL (0.40-0.90); GLUCOSE 105 MG/DL (70-104); POTASSIUM 4.5 MMOL/L (3.5-5.1); SODIUM 135 MMOL/L (135-145); TOTAL CARBON DIOXIDE 28.9 MMOL/L (24-32); eGFR 73 ML/MIN
--- NOTE | 2019-06-13 06:15 | NUR ---
Problems reprioritized. Patient report given, questions answered & plan of care reviewed with Emiliana RUIZ.
[2019-06-13] MEDS: pantoprazole 40mg Tablet.DR PO SCH (07:33)
[2019-06-13] MEDS: sulfamethoxazole/trimethoprim DS (800/160mg) tablet PO SCH (07:33)
[2019-06-13 08:00] VITALS: BP 145/84
[2019-06-13 11:00] VITALS: BP 165/54
== END 2019-06-13 17:18 | disposition home health service (06) | DRG 231 ==
LOC: PAS IN 08:37 → EDSTATUS 12:00 → SUR 3N 17:01
PROVIDERS: ADMIT Surgery; ATTEND Surgery
PROC: 0T788DZ Dilation of Bilateral Ureters with Intraluminal Device, Via Natural or Artificial Opening Endoscopic (ICD-10-PCS; 2019-06-08)
PROC: 0DBN4ZZ Excision of Sigmoid Colon, Percutaneous Endoscopic Approach (ICD-10-PCS; principal; 2019-06-08 12:25)
PROC: 0DNW4ZZ Release Peritoneum, Percutaneous Endoscopic Approach (ICD-10-PCS; 2019-06-08 12:25)
DX: C18.7 Malignant neoplasm of sigmoid colon (principal); K76.6 Portal hypertension; K74.60 Unspecified cirrhosis of liver; D50.0 Iron deficiency anemia secondary to blood loss (chronic); B19.20 Unspecified viral hepatitis C without hepatic coma; F32.9 Major depressive disorder, single episode, unspecified; K66.0 Peritoneal adhesions (postprocedural) (postinfection); F41.9 Anxiety disorder, unspecified; Z90.49 Acquired absence of other specified parts of digestive tract
CPT/HCPCS: 36415; 76000; 80048; 80053; 81001; 82948; 85025; 85610; 85730; 86885; 86900; 86901; 86920; 87081; 93005; A4215; A4355; A4618; A6266; A7000; C1758; G0378; J0690; J0694; J1100; J1170; J2001; J2175; J2250; J2405; J2704; J2710; J3010; J3490; J7120; J8501

== ENCOUNTER 2019-07-10 18:47 | Emergency (ER) | payer MEDICAID ==
[~2019-07-10] VITALS: Ht 160 cm; Wt 64.0 kg
[~2019-07-10 18:47] MED LIST changes: -SULF1TAB49 PO; -ceFOXitin sod/dextrose 2g/50ml 50 ML IV ONE; -famotidine 10mg tablet PO ONE; -meperidine/PF 25mg/ml syringe IV PRN; -ondansetron/PF 4mg/2ml inj IV PRN; -proCHLORperazine 10 MG/2 ml inj IV PRN; -ringers solution, lacted 1,000 ML IV SCH
[2019-07-10 19:03] VITALS: BP 182/114
[2019-07-10] MEDS ORDERED: iohexol 300mg/ml 100ml inj. ONE (20:48)
[2019-07-11] MEDS ORDERED: HYDR-4353 PO (19:46)
== END 2019-07-10 20:55 | disposition left against medical advice (07) ==
LOC: ER 18:48
DX: G89.18 Other acute postprocedural pain (principal); Z53.21 Procedure and treatment not carried out due to patient leaving prior to being seen by health care provider
CPT/HCPCS: Q9967

== ENCOUNTER 2019-07-11 15:55 | Inpatient (IN) | payer MEDICAID ==
[~2019-07-11] VITALS: Ht 160 cm; Wt 66.8 kg
[2019-07-11 17:11] LABS: CLARITY,URINE SLIGHTLY CLOUDY (Clear); COLOR,URINE YELLOW (Yellow); GLUCOSE, URINE NEGATIVE (Neg); KETONES,URINE NEGATIVE (Neg); LEUKOCYTE ESTERASE ,URINE NEGATIVE (Neg); NITRITES, URINE NEGATIVE (Neg); OCCULT BLOOD,URINE TRACE-INTACT (Neg); PH,URINE 5.5 (4.8-8.0); PROTEIN,URINE NEGATIVE (Neg); UROBILINOGEN,URINE 0.2 E.U/dL (0.2-1.0)
[2019-07-11 17:13] LABS: BASOPHILS % (AUTO) 0.7 % (0-1); EOSINOPHILS # (AUTO) 0.4 X10'3 (0-0.9); EOSINOPHILS % (AUTO) 5.9 % (0-6); HEMATOCRIT 35.4 % (35.0-45.0); HEMOGLOBIN 11.8 g/dl (12.0-16.0); LYMPHOCYTES # (AUTO) 1.7 X10'3 (1.1-4.8); LYMPHOCYTES % (AUTO) 24.6 % (21-51); MEAN CORPUSCULAR HEMOGLOBIN 29.3 PG (27.0-31.0); MEAN CORPUSCULAR HGB CONC 33.4 g/dL (33.0-36.5); MEAN CORPUSCULAR VOLUME 87.7 FL (78-98); MEAN PLATELET VOLUME 6.3 FL (7.4-10.4); MONOCYTES # (AUTO) 0.5 X10'3 (0-0.9); MONOCYTES % (AUTO) 7.3 % (2-12); NEUTROPHILS # (AUTO) 4.2 X10'3 (1.8-7.7); NEUTROPHILS % (AUTO) 61.5 % (42-75); PLATELET COUNT 297 X10'3 (140-440); RED BLOOD COUNT 4.04 X10'6 (4.20-5.60); RED CELL DISTRIBUTION WIDTH 14.7 % (11.5-14.5); WHITE BLOOD COUNT 6.8 X10'3 (4.5-11.0)
[2019-07-11 17:19] LABS: UA COLLECTION TYPE CLN CATCH MIDSTREAM
[2019-07-11 17:21] LABS: HYALINE CASTS 0-3 /LPF (NEGATIVE); MUCUS STRANDS MODERATE /LPF (Neg); SQUAMOUS EPITHELIAL CELL,UR MANY /LPF (FEW)
[2019-07-11 17:21] LABS: PARTIAL THROMBOPLASTIN TIME 27 SECONDS (22-32)
[2019-07-11 17:22] LABS: BACTERIA,URINE FEW /HPF (Neg); RBC,URINE 0-2 /HPF (0-2); WBC,URINE 0-4 /HPF (0-4)
[2019-07-11 17:23] LABS: YEAST FEW /HPF (NEGATIVE)
[2019-07-11 17:24] LABS: ALANINE AMINOTRANSFERASE 43 U/L (12-78); ALBUMIN 3.3 G/DL (3.4-5.0); ALBUMIN/GLOBULIN RATIO 0.6 (1.1-1.5); ALKALINE PHOSPHATASE 186 IU/L (46-116); ANION GAP 11 (8-16); ASPARTATE AMINO TRANSFERASE 109 U/L (10-37); BILIRUBIN,TOTAL 0.4 MG/DL (0.1-1.0); BLOOD UREA NITROGEN 9 MG/DL (7-18); BUN/CREATININE RATIO 11.5 (6.6-38.0); CALCIUM 8.8 MG/DL (8.5-10.1); CHLORIDE 106 MMOL/L (99-107); CREATININE 0.78 MG/DL (0.40-0.90); POTASSIUM 3.6 MMOL/L (3.5-5.1); SODIUM 141 MMOL/L (135-145); TOTAL CARBON DIOXIDE 24.5 MMOL/L (24-32); TOTAL PROTEIN 8.5 G/DL (6.4-8.2); eGFR 77 ML/MIN
[2019-07-11 17:28] LABS: GLUCOSE 119 MG/DL (70-104)
[2019-07-11] MEDS ORDERED: normal saline 1000ml 1,000 ML IV ONE (18:08)
[2019-07-11] MEDS ORDERED: normal saline 1000ML IV soln IVB ONE (18:10)
[2019-07-11] MEDS ORDERED: morphine 4 MG/ML inj SYRINge IV ONE (18:10)
[2019-07-11] MEDS ORDERED: iohexol 300mg/ml 100ml inj. ONE (18:13)
[2019-07-11] MEDS: diatr meglu/diatrizoate 30ml oral sol.-(3 dose) bottle PO SCH ×2 (18:30→18:59)
[2019-07-11] MEDS ORDERED: diatrozoate meglu/diatrozoate sod (37% iodine) 120ML oral solution PO ONE (19:05)
[2019-07-11] MEDS ORDERED: ondansetron/PF 4mg/2ml inj IV PRN (19:40)
[2019-07-11] MEDS ORDERED: magnesium 4gm in 100ml NS 100 ML IV PRN (19:40)
[2019-07-11] MEDS ORDERED: potassium CL 10mEq/100ml bag 100 ML IV PRN ×2 (19:40)
[2019-07-11] MEDS ORDERED: magnesium 2GM in 50ml NS 50 ML IV PRN (19:40)
[2019-07-11] MEDS ORDERED: morphine 2 MG/ML inj. syringe IV PRN (19:40)
[2019-07-11] MEDS: normal saline 1000ml 1,000 ML IV SCH ×2 (19:43→22:42)
[2019-07-11] MEDS ORDERED: HYDR-4353 PO (19:46)
[2019-07-11] MEDS: ampicillin/sulbac 3gm/NS 100ml 100 ML IV SCH (20:00)
[2019-07-11] MEDS ORDERED: ampicillin/sulbac 3gm/NS 100ml 100 ML IV SCH (20:00)
[2019-07-11] MEDS: K and/or MAG REPLACEMENT MC SCH (20:00)
[2019-07-11] MEDS ORDERED: diatr meglu/diatrizoate 30ml oral sol.-(3 dose) bottle PO ONE (21:00)
--- NOTE | 2019-07-11 21:30 | NUR ---
Patient arrived to floor around 2130 from the ER dept. A&O , and ambulated to the bathroom to void. Patient then got into her bed. Patient was in no current distress at this time.
[2019-07-11] MEDS: morphine 2 MG/ML inj. syringe IV PRN (22:49)
[2019-07-11 23:45] VITALS: BP 151/83
[2019-07-12] MEDS: ampicillin/sulbac 3gm/NS 100ml 100 ML IV SCH ×3 (02:25→14:19)
--- NOTE | 2019-07-12 03:48 | NUR ---
Patient has been NPO status since arrival to floor apart from gastroview and apple juice given for CT prep.
[2019-07-12] MEDS ORDERED: diatr meglu/diatrizoate 30ml oral sol.-(3 dose) bottle PO ONE ×2 (06:00→07:00)
[2019-07-12 06:14] LABS: BASOPHILS # (AUTO) 0.1 X10'3 (0-0.2); BASOPHILS % (AUTO) 0.9 % (0-1); EOSINOPHILS # (AUTO) 0.6 X10'3 (0-0.9); EOSINOPHILS % (AUTO) 9.3 % (0-6); HEMOGLOBIN 10.6 g/dl (12.0-16.0); LYMPHOCYTES # (AUTO) 1.3 X10'3 (1.1-4.8); LYMPHOCYTES % (AUTO) 22.1 % (21-51); MEAN CORPUSCULAR HEMOGLOBIN 30.4 PG (27.0-31.0); MEAN CORPUSCULAR HGB CONC 34.3 g/dL (33.0-36.5); MEAN CORPUSCULAR VOLUME 88.7 FL (78-98); MEAN PLATELET VOLUME 6.6 FL (7.4-10.4); MONOCYTES # (AUTO) 0.8 X10'3 (0-0.9); MONOCYTES % (AUTO) 12.9 % (2-12); NEUTROPHILS # (AUTO) 3.3 X10'3 (1.8-7.7); NEUTROPHILS % (AUTO) 54.8 % (42-75); PLATELET COUNT 222 X10'3 (140-440); RED CELL DISTRIBUTION WIDTH 14.6 % (11.5-14.5)
[2019-07-12 06:30] LABS: ALANINE AMINOTRANSFERASE 35 U/L (12-78); ALBUMIN 2.7 G/DL (3.4-5.0); ALBUMIN/GLOBULIN RATIO 0.6 (1.1-1.5); ALKALINE PHOSPHATASE 160 IU/L (46-116); ANION GAP 11 (8-16); ASPARTATE AMINO TRANSFERASE 82 U/L (10-37); BILIRUBIN,TOTAL 0.5 MG/DL (0.1-1.0); BLOOD UREA NITROGEN 8 MG/DL (7-18); BUN/CREATININE RATIO 10.8 (6.6-38.0); CALCIUM 7.6 MG/DL (8.5-10.1); CHLORIDE 107 MMOL/L (99-107); CREATININE 0.74 MG/DL (0.40-0.90); MAGNESIUM 1.5 MG/DL (1.5-2.4); POTASSIUM 3.8 MMOL/L (3.5-5.1); SODIUM 140 MMOL/L (135-145); TOTAL CARBON DIOXIDE 22.5 MMOL/L (24-32); TOTAL PROTEIN 7.2 G/DL (6.4-8.2); eGFR 82 ML/MIN
[2019-07-12 06:31] LABS: GLUCOSE 106 MG/DL (70-104)
--- NOTE | 2019-07-12 06:45 | NUR ---
Problems reprioritized. Patient report given, questions answered & plan of care reviewed with Aleta Woods.
--- NOTE | 2019-07-12 06:52 | NUR ---
Patient in room [facility] 350. I have received report from Joyce RUIZ and had the opportunity to ask questions and assume patient care.
[2019-07-12 07:55] VITALS: BP 126/76
[2019-07-12] MEDS ORDERED: pantoprazole 40 MG vial IV SCH (08:00)
[2019-07-12] MEDS: morphine 2 MG/ML inj. syringe IV PRN (08:19)
[2019-07-12] MEDS: K and/or MAG REPLACEMENT MC SCH (08:22)
--- NOTE | 2019-07-12 09:28 | NUR ---
SL ready for CT, WC outside of door.
[2019-07-12] MEDS: normal saline 1000ml 1,000 ML IV SCH (10:12)
--- NOTE | 2019-07-12 10:15 | NUR ---
Patient back from CT. Talking on the phone to her mother.
[2019-07-12 11:32] VITALS: BP 156/81
[2019-07-12] MEDS ORDERED: SPIR25TA5 PO (13:26)
[2019-07-12] MEDS ORDERED: FURO-150 PO (13:26)
--- NOTE | 2019-07-12 13:34 | NUR ---
Pt admit with c/o uncomfortableness around abdominal wound. Per notes her skin around the wound became quite red, inflamed and painful however the wound does not appear to be a source of cellulitis and appears to have more mechanical damage from the tape on the surface. Pt NPO at this time. Will continue to follow and monitor need for additional protein/ONS with diet advancement. Addendum: 07/12/19 at [address] Amended: Links added.
--- NOTE | 2019-07-12 14:49 | NUR ---
Patient discharged on nursing end. Patient waiting on a ride. CM called.
--- NOTE | 2019-07-12 15:41 | NUR ---
Patient being discharged. Ride is on the way via Taxi.
== END 2019-07-12 15:51 | disposition home health service (06) ==
LOC: ER 15:56 → ED HOLD 20:25 → CMPBEDREQ 21:46 → SUR 3N 21:47
PROVIDERS: ADMIT Internal Medicine; ATTEND Family Medicine
DX: K74.60 Unspecified cirrhosis of liver (principal); R18.8 Other ascites; B19.20 Unspecified viral hepatitis C without hepatic coma; F15.90 Other stimulant use, unspecified, uncomplicated; K21.9 Gastro-esophageal reflux disease without esophagitis; F41.9 Anxiety disorder, unspecified; F32.9 Major depressive disorder, single episode, unspecified; F17.210 Nicotine dependence, cigarettes, uncomplicated; Z88.1 Allergy status to other antibiotic agents; Z88.8 Allergy status to other drugs, medicaments and biological substances; Z90.49 Acquired absence of other specified parts of digestive tract; Z85.038 Personal history of other malignant neoplasm of large intestine; Z83.3 Family history of diabetes mellitus
CPT/HCPCS: 36415; 71045; 74177; 80053; 81001; 83605; 83735; 84145; 85025; 85610; 85730; 87040; 87081; C9113; G0378; J0295; J2270; J7030; Q9963; Q9967

== ENCOUNTER 2019-11-05 19:33 | Emergency (ER) | payer MEDICAID ==
[~2019-11-05] VITALS: Ht 160 cm; Wt 66.3 kg
[~2019-11-05 19:33] MED LIST changes: +FURO-150 PO; +HYDR-4353 PO; +SPIR25TA5 PO
--- NOTE | 2019-11-05 19:54 | NUR ---
Pt states she used meth "this last weekend"
[2019-11-05 20:06] LABS: CLARITY,URINE CLEAR (Clear); COLOR,URINE YELLOW (Yellow); GLUCOSE, URINE NEGATIVE (Neg); KETONES,URINE NEGATIVE (Neg); LEUKOCYTE ESTERASE ,URINE NEGATIVE (Neg); NITRITES, URINE NEGATIVE (Neg); OCCULT BLOOD,URINE TRACE-INTACT (Neg); PH,URINE 6.5 (4.8-8.0); PROTEIN,URINE NEGATIVE (Neg); UROBILINOGEN,URINE 0.2 E.U/dL (0.2-1.0)
[2019-11-05 20:11] LABS: RBC,URINE 0-2 /HPF (0-2); UA COLLECTION TYPE CLN CATCH MIDSTREAM; WBC,URINE NONE SEEN /HPF (0-4)
[2019-11-05 20:12] LABS: BACTERIA,URINE NONE SEEN /HPF (Neg); SQUAMOUS EPITHELIAL CELL,UR FEW /LPF (FEW)
[2019-11-05 20:21] LABS: URINE HCG NEGATIVE (NEG)
[2019-11-05 20:25] LABS: BASOPHILS # (AUTO) 0.1 X10'3 (0-0.2); BASOPHILS % (AUTO) 1.1 % (0-1); EOSINOPHILS # (AUTO) 0.5 X10'3 (0-0.9); EOSINOPHILS % (AUTO) 8.1 % (0-6); LYMPHOCYTES # (AUTO) 1.8 X10'3 (1.1-4.8); LYMPHOCYTES % (AUTO) 30.9 % (21-51); MEAN CORPUSCULAR HEMOGLOBIN 28.3 PG (27.0-31.0); MEAN CORPUSCULAR HGB CONC 33.2 g/dL (33.0-36.5); MEAN CORPUSCULAR VOLUME 85.3 FL (78-98); MEAN PLATELET VOLUME 6.8 FL (7.4-10.4); MONOCYTES # (AUTO) 0.5 X10'3 (0-0.9); MONOCYTES % (AUTO) 8.2 % (2-12); NEUTROPHILS # (AUTO) 3.1 X10'3 (1.8-7.7); NEUTROPHILS % (AUTO) 51.7 % (42-75); PLATELET COUNT 185 X10'3 (140-440); RED BLOOD COUNT 4.23 X10'6 (4.20-5.60); RED CELL DISTRIBUTION WIDTH 15.2 % (11.5-14.5); WHITE BLOOD COUNT 5.9 X10'3 (4.5-11.0)
[2019-11-05 20:41] LABS: ALANINE AMINOTRANSFERASE 79 U/L (12-78); ALBUMIN 3.4 G/DL (3.4-5.0); ALBUMIN/GLOBULIN RATIO 0.6 (1.1-1.5); ALKALINE PHOSPHATASE 159 IU/L (46-116); ANION GAP 12 (8-16); ASPARTATE AMINO TRANSFERASE 188 U/L (10-37); BILIRUBIN,TOTAL 0.3 MG/DL (0.1-1.0); BLOOD UREA NITROGEN 12 MG/DL (7-18); BUN/CREATININE RATIO 14.8 (6.6-38.0); CHLORIDE 102 MMOL/L (99-107); CREATININE 0.81 MG/DL (0.40-0.90); LIPASE 205 U/L (73-393); POTASSIUM 3.5 MMOL/L (3.5-5.1); SODIUM 140 MMOL/L (135-145); TOTAL CARBON DIOXIDE 26.2 MMOL/L (24-32); TOTAL PROTEIN 8.9 G/DL (6.4-8.2); eGFR 74 ML/MIN
[2019-11-05 20:49] LABS: CALCIUM 8.7 MG/DL (8.5-10.1); GLUCOSE 93 MG/DL (70-104)
[2019-11-05] MEDS ORDERED: iohexol 300mg/ml 100ml inj. ONE (21:02)
[2019-11-05 22:29] VITALS: BP 116/64
[2019-11-05] MEDS ORDERED: ibuprofen 200mg tablet PO ONE (22:55)
[2019-11-05] MEDS ORDERED: HYDROcodone/acetaminophen 5mg/325mg tablet PO ONE (22:55)
== END 2019-11-05 23:08 | disposition home or self-care (01) ==
LOC: ER 19:34
DX: R10.11 Right upper quadrant pain (principal); R10.12 Left upper quadrant pain; K21.9 Gastro-esophageal reflux disease without esophagitis; F15.90 Other stimulant use, unspecified, uncomplicated; Z56.0 Unemployment, unspecified; Z98.890 Other specified postprocedural states; Z90.49 Acquired absence of other specified parts of digestive tract; Z79.899 Other long term (current) drug therapy
CPT/HCPCS: 74177; 80053; 81001; 81025; 83690; 85025; 99285; Q9967

== ENCOUNTER 2019-11-30 18:07 | Emergency (ER) | payer MEDICAID ==
[~2019-11-30] VITALS: Ht 160 cm; Wt 65.0 kg
[2019-11-30 18:54] LABS: BASOPHILS # (AUTO) 0.1 X10'3 (0-0.2); BASOPHILS % (AUTO) 1.3 % (0-1); EOSINOPHILS # (AUTO) 0.3 X10'3 (0-0.9); HEMATOCRIT 37.2 % (35.0-45.0); HEMOGLOBIN 12.2 g/dl (12.0-16.0); LYMPHOCYTES # (AUTO) 2.1 X10'3 (1.1-4.8); LYMPHOCYTES % (AUTO) 30.5 % (21-51); MEAN CORPUSCULAR HEMOGLOBIN 27.9 PG (27.0-31.0); MEAN CORPUSCULAR HGB CONC 32.8 g/dL (33.0-36.5); MEAN CORPUSCULAR VOLUME 85.1 FL (78-98); MONOCYTES # (AUTO) 0.6 X10'3 (0-0.9); MONOCYTES % (AUTO) 9.5 % (2-12); NEUTROPHILS # (AUTO) 3.6 X10'3 (1.8-7.7); NEUTROPHILS % (AUTO) 53.7 % (42-75); PLATELET COUNT 220 X10'3 (140-440); RED BLOOD COUNT 4.38 X10'6 (4.20-5.60); RED CELL DISTRIBUTION WIDTH 15.3 % (11.5-14.5); WHITE BLOOD COUNT 6.8 X10'3 (4.5-11.0)
[2019-11-30 19:08] LABS: ALANINE AMINOTRANSFERASE 110 U/L (12-78); ALBUMIN 3.6 G/DL (3.4-5.0); ALBUMIN/GLOBULIN RATIO 0.6 (1.1-1.5); ALKALINE PHOSPHATASE 173 IU/L (46-116); ANION GAP 9 (8-16); ASPARTATE AMINO TRANSFERASE 220 U/L (10-37); BILIRUBIN,TOTAL 0.5 MG/DL (0.1-1.0); BLOOD UREA NITROGEN 13 MG/DL (7-18); BUN/CREATININE RATIO 11.7 (6.6-38.0); CHLORIDE 104 MMOL/L (99-107); CREATININE 1.11 MG/DL (0.40-0.90); POTASSIUM 3.5 MMOL/L (3.5-5.1); SODIUM 140 MMOL/L (135-145); TOTAL CARBON DIOXIDE 27.2 MMOL/L (24-32); TOTAL PROTEIN 9.4 G/DL (6.4-8.2); eGFR 51 ML/MIN
[2019-11-30] MEDS ORDERED: famotidine/PF 10 mg/ml inj IV ONE (19:20)
[2019-11-30] MEDS ORDERED: acetaminophen 325mg tablet PO ONE (19:20)
[2019-11-30 19:35] LABS: LIPASE 158 U/L (73-393)
[2019-11-30 19:36] LABS: GLUCOSE 110 MG/DL (70-104)
[2019-11-30 20:36] VITALS: BP 135/79
== END 2019-11-30 20:34 | disposition home or self-care (01) ==
LOC: ER 18:08
DX: R07.89 Other chest pain (principal); R10.9 Unspecified abdominal pain; N17.9 Acute kidney failure, unspecified; K21.9 Gastro-esophageal reflux disease without esophagitis; F41.9 Anxiety disorder, unspecified; F32.9 Major depressive disorder, single episode, unspecified; F15.90 Other stimulant use, unspecified, uncomplicated; Z86.19 Personal history of other infectious and parasitic diseases; Z90.49 Acquired absence of other specified parts of digestive tract; Z98.890 Other specified postprocedural states; Z60.2 Problems related to living alone; Z56.0 Unemployment, unspecified; Z79.899 Other long term (current) drug therapy
CPT/HCPCS: 36415; 71045; 80053; 83690; 84484; 85025; 93005; 96374; 99285; J3490

== ENCOUNTER 2019-12-26 16:27 | Emergency (ER) | payer MEDICAID ==
[~2019-12-26] VITALS: Ht 157.5 cm; Wt 72.8 kg
[2019-12-26 17:51] LABS: BASOPHILS # (AUTO) 0.1 X10'3 (0-0.2); BASOPHILS % (AUTO) 1.2 % (0-1); EOSINOPHILS # (AUTO) 0.2 X10'3 (0-0.9); EOSINOPHILS % (AUTO) 4.1 % (0-6); HEMATOCRIT 35.8 % (35.0-45.0); HEMOGLOBIN 11.9 g/dl (12.0-16.0); LYMPHOCYTES # (AUTO) 1.4 X10'3 (1.1-4.8); LYMPHOCYTES % (AUTO) 27.3 % (21-51); MEAN CORPUSCULAR HEMOGLOBIN 28.5 PG (27.0-31.0); MEAN CORPUSCULAR HGB CONC 33.3 g/dL (33.0-36.5); MEAN CORPUSCULAR VOLUME 85.5 FL (78-98); MEAN PLATELET VOLUME 7.2 FL (7.4-10.4); MONOCYTES # (AUTO) 0.5 X10'3 (0-0.9); MONOCYTES % (AUTO) 9.8 % (2-12); NEUTROPHILS % (AUTO) 57.6 % (42-75); PLATELET COUNT 180 X10'3 (140-440); RED BLOOD COUNT 4.19 X10'6 (4.20-5.60); RED CELL DISTRIBUTION WIDTH 15.6 % (11.5-14.5); WHITE BLOOD COUNT 5.3 X10'3 (4.5-11.0)
[2019-12-26 17:56] VITALS: BP 118/81
[2019-12-26 17:58] LABS: ALANINE AMINOTRANSFERASE 88 U/L (12-78); ALBUMIN 3.3 G/DL (3.4-5.0); ALBUMIN/GLOBULIN RATIO 0.6 (1.1-1.5); ALKALINE PHOSPHATASE 187 IU/L (46-116); ANION GAP 7 (8-16); ASPARTATE AMINO TRANSFERASE 163 U/L (10-37); BILIRUBIN,TOTAL 0.5 MG/DL (0.1-1.0); BLOOD UREA NITROGEN 11 MG/DL (7-18); CALCIUM 8.8 MG/DL (8.5-10.1); CHLORIDE 105 MMOL/L (99-107); POTASSIUM 3.5 MMOL/L (3.5-5.1); SODIUM 137 MMOL/L (135-145); TOTAL CARBON DIOXIDE 24.9 MMOL/L (24-32); eGFR 58 ML/MIN
[2019-12-26 18:31] LABS: GLUCOSE 100 MG/DL (70-104)
== END 2019-12-26 19:57 | disposition home or self-care (01) ==
LOC: ER 16:28
DX: R05 Cough (principal); R50.9 Fever, unspecified; R06.02 Shortness of breath; R11.2 Nausea with vomiting, unspecified; R19.7 Diarrhea, unspecified; Z20.828 Contact with and (suspected) exposure to other viral communicable diseases; K21.9 Gastro-esophageal reflux disease without esophagitis; F41.9 Anxiety disorder, unspecified; F32.9 Major depressive disorder, single episode, unspecified; F15.90 Other stimulant use, unspecified, uncomplicated; Z86.19 Personal history of other infectious and parasitic diseases; Z98.890 Other specified postprocedural states; Z90.49 Acquired absence of other specified parts of digestive tract; Z72.89 Other problems related to lifestyle; Z60.2 Problems related to living alone; Z56.0 Unemployment, unspecified; Z79.899 Other long term (current) drug therapy
CPT/HCPCS: 36415; 71045; 80053; 83880; 84484; 85025; 85610; 93005; 99285; U0003

== ENCOUNTER 2020-02-09 12:20 | Emergency (ER) | payer MEDICAID ==
[~2020-02-09] VITALS: Ht 160 cm; Wt 68.5 kg
[2020-02-09 13:05] LABS: BASOPHILS # (AUTO) 0.1 X10'3 (0-0.2); BASOPHILS % (AUTO) 1.3 % (0-1); EOSINOPHILS # (AUTO) 0.3 X10'3 (0-0.9); EOSINOPHILS % (AUTO) 5.3 % (0-6); HEMATOCRIT 35.9 % (35.0-45.0); HEMOGLOBIN 11.9 g/dl (12.0-16.0); LYMPHOCYTES # (AUTO) 1.5 X10'3 (1.1-4.8); LYMPHOCYTES % (AUTO) 28.6 % (21-51); MEAN CORPUSCULAR HEMOGLOBIN 28.7 PG (27.0-31.0); MEAN CORPUSCULAR HGB CONC 33.1 g/dL (33.0-36.5); MEAN CORPUSCULAR VOLUME 86.5 FL (78-98); MEAN PLATELET VOLUME 6.9 FL (7.4-10.4); MONOCYTES # (AUTO) 0.5 X10'3 (0-0.9); MONOCYTES % (AUTO) 8.9 % (2-12); NEUTROPHILS % (AUTO) 55.9 % (42-75); PLATELET COUNT 199 X10'3 (140-440); RED BLOOD COUNT 4.15 X10'6 (4.20-5.60); WHITE BLOOD COUNT 5.4 X10'3 (4.5-11.0)
[2020-02-09 13:09] LABS: CLARITY,URINE SLIGHTLY CLOUDY (Clear); COLOR,URINE YELLOW (Yellow); GLUCOSE, URINE NEGATIVE (Neg); KETONES,URINE TRACE mg/dl (Neg); LEUKOCYTE ESTERASE ,URINE NEGATIVE (Neg); NITRITES, URINE NEGATIVE (Neg); OCCULT BLOOD,URINE NEGATIVE (Neg); PROTEIN,URINE NEGATIVE (Neg); UROBILINOGEN,URINE 0.2 E.U/dL (0.2-1.0)
[2020-02-09 13:11] LABS: UA COLLECTION TYPE CLN CATCH MIDSTREAM; URINE HCG NEGATIVE (NEG)
[2020-02-09 13:16] LABS: ALANINE AMINOTRANSFERASE 80 U/L (12-78); ALBUMIN 3.3 G/DL (3.4-5.0); ALBUMIN/GLOBULIN RATIO 0.6 (1.1-1.5); ALKALINE PHOSPHATASE 174 IU/L (46-116); ANION GAP 7 (8-16); ASPARTATE AMINO TRANSFERASE 175 U/L (10-37); BILIRUBIN,TOTAL 0.5 MG/DL (0.1-1.0); BLOOD UREA NITROGEN 10 MG/DL (7-18); BUN/CREATININE RATIO 11.1 (6.6-38.0); CHLORIDE 99 MMOL/L (99-107); LIPASE 243 U/L (73-393); POTASSIUM 3.9 MMOL/L (3.5-5.1); SODIUM 135 MMOL/L (135-145); TOTAL CARBON DIOXIDE 28.9 MMOL/L (24-32); TOTAL PROTEIN 9.2 G/DL (6.4-8.2); eGFR 65 ML/MIN
[2020-02-09 13:17] LABS: GLUCOSE 112 MG/DL (70-104)
[2020-02-09 13:18] LABS: MUCUS STRANDS MODERATE /LPF (Neg); SQUAMOUS EPITHELIAL CELL,UR MANY /LPF (FEW)
[2020-02-09 13:19] LABS: BACTERIA,URINE FEW /HPF (Neg); RBC,URINE 0-2 /HPF (0-2); WBC,URINE 0-4 /HPF (0-4)
[2020-02-09 16:26] VITALS: BP 160/100
== END 2020-02-09 17:04 | disposition home or self-care (01) ==
LOC: ER 12:21
DX: R10.31 Right lower quadrant pain (principal); K74.60 Unspecified cirrhosis of liver; K21.9 Gastro-esophageal reflux disease without esophagitis; F41.9 Anxiety disorder, unspecified; F32.9 Major depressive disorder, single episode, unspecified; F15.90 Other stimulant use, unspecified, uncomplicated; Z86.19 Personal history of other infectious and parasitic diseases; Z90.49 Acquired absence of other specified parts of digestive tract; Z98.890 Other specified postprocedural states; Z72.89 Other problems related to lifestyle; Z60.2 Problems related to living alone; Z56.0 Unemployment, unspecified; Z79.899 Other long term (current) drug therapy
CPT/HCPCS: 36415; 74176; 80053; 81001; 81025; 83690; 85025; 99284

== ENCOUNTER 2020-03-28 17:38 | Inpatient (IN) | payer MEDICAID ==
[~2020-03-28] VITALS: Ht 160 cm; Wt 65.9 kg
[2020-03-28] MEDS ORDERED: normal saline 1000ML IV soln IVB ONE (17:45)
[2020-03-28 18:21] LABS: BASOPHILS # (AUTO) 0.1 X10'3 (0-0.2); EOSINOPHILS # (AUTO) 0.6 X10'3 (0-0.9); EOSINOPHILS % (AUTO) 7.6 % (0-6); HEMATOCRIT 22.3 % (35.0-45.0); HEMOGLOBIN 7.7 g/dl (12.0-16.0); LYMPHOCYTES # (AUTO) 2.1 X10'3 (1.1-4.8); MEAN CORPUSCULAR HEMOGLOBIN 29.6 PG (27.0-31.0); MEAN CORPUSCULAR HGB CONC 34.7 g/dL (33.0-36.5); MEAN CORPUSCULAR VOLUME 85.2 FL (78-98); MEAN PLATELET VOLUME 7.1 FL (7.4-10.4); MONOCYTES # (AUTO) 0.7 X10'3 (0-0.9); MONOCYTES % (AUTO) 9.4 % (2-12); NEUTROPHILS # (AUTO) 4.1 X10'3 (1.8-7.7); PLATELET COUNT 172 X10'3 (140-440); RED BLOOD COUNT 2.62 X10'6 (4.20-5.60); RED CELL DISTRIBUTION WIDTH 15.3 % (11.5-14.5); WHITE BLOOD COUNT 7.6 X10'3 (4.5-11.0)
[2020-03-28 18:33] LABS: ALANINE AMINOTRANSFERASE 58 U/L (12-78); ALBUMIN 3.1 G/DL (3.4-5.0); ALBUMIN/GLOBULIN RATIO 0.6 (1.1-1.5); ALKALINE PHOSPHATASE 123 IU/L (46-116); ANION GAP 8 (8-16); ASPARTATE AMINO TRANSFERASE 70 U/L (10-37); BILIRUBIN,TOTAL 0.6 MG/DL (0.1-1.0); BLOOD UREA NITROGEN 21 MG/DL (7-18); BUN/CREATININE RATIO 15.2 (6.6-38.0); CALCIUM 8.2 MG/DL (8.5-10.1); CHLORIDE 97 MMOL/L (99-107); CREATININE 1.38 MG/DL (0.40-0.90); LIPASE 135 U/L (73-393); SODIUM 134 MMOL/L (135-145); TOTAL CARBON DIOXIDE 29.3 MMOL/L (24-32); TOTAL PROTEIN 7.9 G/DL (6.4-8.2); eGFR 40 ML/MIN
[2020-03-28 18:37] LABS: GLUCOSE 115 MG/DL (70-104); POTASSIUM 2.6 MMOL/L (3.5-5.1)
[2020-03-28] MEDS ORDERED: desmopressin inj. 25 MCG in normal saline 100ml IV soln 93.75 ML IV ONE (19:00)
[2020-03-28] MEDS ORDERED: potassium Cl 20 mEq SR tablet PO ONE (19:20)
[2020-03-28] MEDS: potassium Cl 10 mEq/100mL bag IV SCH ×2 (19:32→21:20)
[2020-03-28 19:56] VITALS: BP 114/71
[2020-03-28] MEDS ORDERED: SERT25TA PO (20:13)
[2020-03-28] MEDS ORDERED: MAGN400T29 PO (20:13)
[2020-03-28] MEDS ORDERED: GABA-530 PO (20:13)
[2020-03-28 20:15] VITALS: BP 115/69
[2020-03-28 20:19] LABS: CLARITY,URINE CLEAR (Clear); COLOR,URINE YELLOW (Yellow); GLUCOSE, URINE NEGATIVE (Neg); KETONES,URINE NEGATIVE (Neg); LEUKOCYTE ESTERASE ,URINE TRACE (Neg); NITRITES, URINE NEGATIVE (Neg); OCCULT BLOOD,URINE TRACE-INTACT (Neg); PH,URINE 5.5 (4.8-8.0); PROTEIN,URINE NEGATIVE (Neg); UROBILINOGEN,URINE 0.2 E.U/dL (0.2-1.0)
[2020-03-28 20:20] LABS: UA COLLECTION TYPE CLN CATCH MIDSTREAM
[2020-03-28 20:24] LABS: BACTERIA,URINE FEW /HPF (Neg); RBC,URINE NONE SEEN /HPF (0-2); SQUAMOUS EPITHELIAL CELL,UR FEW /LPF (FEW); WBC,URINE 0-4 /HPF (0-4)
[2020-03-28 21:15] VITALS: BP 109/75
[2020-03-28 22:14] VITALS: BP 119/64
[2020-03-28] MEDS ORDERED: normal saline 1000ml 1,000 ML IV ONE (22:20)
--- NOTE | 2020-03-28 22:48 | NUR ---
Pt off to CT
--- NOTE | 2020-03-28 23:10 | NUR ---
Pt refusing to allow the remaining 20 ml of pottasium to one in her IV she states it hurts to much. pt previously received one IV replacement and oral replacement. MD blount
[2020-03-28 23:53] LABS: HEMATOCRIT 22.3 % (35.0-45.0); HEMOGLOBIN 7.6 g/dl (12.0-16.0); MEAN CORPUSCULAR HEMOGLOBIN 29.5 PG (27.0-31.0); MEAN CORPUSCULAR HGB CONC 34.4 g/dL (33.0-36.5); MEAN CORPUSCULAR VOLUME 85.9 FL (78-98); MEAN PLATELET VOLUME 6.9 FL (7.4-10.4); PLATELET COUNT 138 X10'3 (140-440); RED BLOOD COUNT 2.59 X10'6 (4.20-5.60); RED CELL DISTRIBUTION WIDTH 14.9 % (11.5-14.5); WHITE BLOOD COUNT 5.8 X10'3 (4.5-11.0)
[2020-03-29] VITALS (8 sets, daily range): BP systolic 112–145; BP diastolic 64–86
[2020-03-29] MEDS ORDERED: potassium CL 10mEq/100ml bag 100 ML IV PRN ×2 (00:05)
[2020-03-29] MEDS: normal saline 1000ml 1,000 ML IV SCH ×3 (00:05→15:09)
[2020-03-29] MEDS ORDERED: acetaminophen 325mg tablet PO PRN (00:05)
[2020-03-29] MEDS ORDERED: ondansetron/PF 4mg/2ml inj IV PRN (00:05)
[2020-03-29] MEDS ORDERED: potassium Cl 20 mEq SR tablet PO PRN ×2 (00:05)
[2020-03-29] MEDS ORDERED: magnesium 4gm in 100ml NS 100 ML IV PRN (00:05)
[2020-03-29] MEDS ORDERED: magnesium 2GM in 50ml NS 50 ML IV PRN (00:05)
--- NOTE | 2020-03-29 06:30 | NUR ---
Patient in room PCU 3014. I have received report from JOSEPH Bernstein and had the opportunity to ask questions and assume patient care. Patient asleep in bed and in no acute distress.
[2020-03-29] MEDS: K and/or MAG REPLACEMENT MC SCH ×2 (08:00→18:48)
[2020-03-29] MEDS: morphine 2 MG/ML inj. syringe IV PRN ×3 (09:12→19:00)
[2020-03-29] MEDS: pantoprazole 40 MG vial IV SCH (09:12)
--- NOTE | 2020-03-29 10:13 | NUR ---
Orders for stat CBC and BMP put in per Dr. Lock.
[2020-03-29 11:14] LABS: EOSINOPHILS # (AUTO) 0.4 X10'3 (0-0.9); EOSINOPHILS % (AUTO) 8.6 % (0-6); HEMATOCRIT 22.2 % (35.0-45.0); HEMOGLOBIN 7.6 g/dl (12.0-16.0); LYMPHOCYTES # (AUTO) 0.8 X10'3 (1.1-4.8); MEAN CORPUSCULAR HEMOGLOBIN 29.7 PG (27.0-31.0); MEAN CORPUSCULAR HGB CONC 34.3 g/dL (33.0-36.5); MEAN CORPUSCULAR VOLUME 86.6 FL (78-98); MEAN PLATELET VOLUME 7.1 FL (7.4-10.4); MONOCYTES # (AUTO) 0.4 X10'3 (0-0.9); MONOCYTES % (AUTO) 9.1 % (2-12); NEUTROPHILS # (AUTO) 2.6 X10'3 (1.8-7.7); NEUTROPHILS % (AUTO) 61.3 % (42-75); PLATELET COUNT 144 X10'3 (140-440); RED BLOOD COUNT 2.57 X10'6 (4.20-5.60); RED CELL DISTRIBUTION WIDTH 15.4 % (11.5-14.5); WHITE BLOOD COUNT 4.2 X10'3 (4.5-11.0)
[2020-03-29 11:23] LABS: ALBUMIN 2.6 G/DL (3.4-5.0); ANION GAP 2 (8-16); BLOOD UREA NITROGEN 17 MG/DL (7-18); BUN/CREATININE RATIO 20.7 (6.6-38.0); CALCIUM 7.5 MG/DL (8.5-10.1); CHLORIDE 106 MMOL/L (99-107); CREATININE 0.82 MG/DL (0.40-0.90); GLUCOSE 103 MG/DL (70-104); POTASSIUM 3.6 MMOL/L (3.5-5.1); SODIUM 138 MMOL/L (135-145); TOTAL CARBON DIOXIDE 29.9 MMOL/L (24-32); eGFR 73 ML/MIN
--- NOTE | 2020-03-29 11:36 | NUR ---
Attempted to DART patient, patient wanted to continue to rest a little bit longer. Will attempt to DART again this shift.
--- NOTE | 2020-03-29 17:16 | NUR ---
Orders for a regular diet put in per Dr. Rudolph.
--- NOTE | 2020-03-29 18:09 | NUR ---
[place] Medication Administration: For this medication-pass time frame, all medication were reviewed, dispensed, administered and documented per hospital policy by JOSEPH Alamo.
--- NOTE | 2020-03-29 18:09 | NUR ---
[place] documentation: I have reviewed and agree with all interventions, assessments performed and documented by JOSEPH Alamo.
--- NOTE | 2020-03-29 18:19 | NUR ---
Problems reprioritized. Patient report given, questions answered & plan of care reviewed with JOSEPH Choudhary. Patient stable at transfer of care.
--- NOTE | 2020-03-29 18:30 | NUR ---
Patient in room PCU 3014. I have received report from JOSEPH Agosto and had the opportunity to ask questions and assume patient care.
[2020-03-29] MEDS ORDERED: LIDOcaine 5% patch TP SCH (21:55)
--- NOTE | 2020-03-29 22:00 | NUR ---
Assumed care of JOSEPH Choudhary patient. Patient is ALOx4, in no apparent distress. Patient complains of abdomen being distended, but admits to passing gas, and had a BM on the 7th, Vital were taken by me and are within normal limits, they will be charted under 2200 Patient ambulated to the bathroom, she did complain of pain but pain medication is not due for another hour. Will continue to monitor.
[2020-03-30] VITALS (7 sets, daily range): BP systolic 118–149; BP diastolic 51–86
[2020-03-30] MEDS: morphine 2 MG/ML inj. syringe IV PRN ×3 (01:25→16:42)
[2020-03-30] MEDS: normal saline 1000ml 1,000 ML IV SCH ×3 (01:31→23:44)
[2020-03-30] MEDS: LIDOcaine 5% patch TP SCH (02:00)
--- NOTE | 2020-03-30 02:00 | NUR ---
patient refused 03
--- NOTE | 2020-03-30 02:00 | NUR ---
Patient refused 0200 vitals
--- NOTE | 2020-03-30 04:27 | NUR ---
Lidocaine patch was given at 0126 06/30/19/ The first application had originally been scheduled 06-29-19 @ 2155 but the patient was asleep and had told me that she did not want to be woken up for awhile. I sent a message to pharmacy telling them when I had given it and what time, I asked for it to [place] [address]/30/20. I non admin it under medication already given.
[2020-03-30 05:43] LABS: BASOPHILS % (AUTO) 0.7 % (0-1); EOSINOPHILS # (AUTO) 0.4 X10'3 (0-0.9); EOSINOPHILS % (AUTO) 8.4 % (0-6); HEMATOCRIT 22.5 % (35.0-45.0); HEMOGLOBIN 7.5 g/dl (12.0-16.0); LYMPHOCYTES # (AUTO) 1.1 X10'3 (1.1-4.8); LYMPHOCYTES % (AUTO) 21.8 % (21-51); MEAN CORPUSCULAR HGB CONC 33.5 g/dL (33.0-36.5); MEAN CORPUSCULAR VOLUME 86.7 FL (78-98); MEAN PLATELET VOLUME 6.9 FL (7.4-10.4); MONOCYTES # (AUTO) 0.5 X10'3 (0-0.9); MONOCYTES % (AUTO) 10.4 % (2-12); NEUTROPHILS # (AUTO) 2.8 X10'3 (1.8-7.7); NEUTROPHILS % (AUTO) 58.7 % (42-75); PLATELET COUNT 159 X10'3 (140-440); RED CELL DISTRIBUTION WIDTH 15.1 % (11.5-14.5); WHITE BLOOD COUNT 4.8 X10'3 (4.5-11.0)
[2020-03-30 05:47] LABS: ALBUMIN 2.3 G/DL (3.4-5.0); ANION GAP 3 (8-16); BLOOD UREA NITROGEN 11 MG/DL (7-18); BUN/CREATININE RATIO 13.8 (6.6-38.0); CALCIUM 7.5 MG/DL (8.5-10.1); CHLORIDE 104 MMOL/L (99-107); GLUCOSE 99 MG/DL (70-104); MAGNESIUM 1.4 MG/DL (1.5-2.4); POTASSIUM 3.5 MMOL/L (3.5-5.1); SODIUM 136 MMOL/L (135-145); TOTAL CARBON DIOXIDE 28.7 MMOL/L (24-32); eGFR 75 ML/MIN
--- NOTE | 2020-03-30 06:38 | NUR ---
Problems reprioritized. Patient report given, questions answered & plan of care reviewed with JOSEPH Howe.
--- NOTE | 2020-03-30 06:41 | NUR ---
Patient in room PCU 3014. I have received report from Александр RUIZ and had the opportunity to ask questions and assume patient care.
[2020-03-30] MEDS ORDERED: gabapentin 100mg capsule PO PRN (08:00)
[2020-03-30] MEDS: K and/or MAG REPLACEMENT MC SCH ×2 (08:00→20:00)
[2020-03-30] MEDS: pantoprazole 40 MG vial IV SCH (08:01)
[2020-03-30] MEDS: magnesium Cl slow-release 64mg tablet PO PRN (08:02)
[2020-03-30] MEDS: magnesium oxide 400mg tablet PO SCH (10:28)
[2020-03-30] MEDS: furosemide 20MG tablet PO SCH (10:28)
[2020-03-30] MEDS: spironolactone 25 MG tablet PO SCH (10:28)
[2020-03-30] MEDS ORDERED: ESOM40CA PO (11:15)
[2020-03-30] MEDS ORDERED: furosemide 40mg/4ml inj IV ONE (13:20)
--- NOTE | 2020-03-30 18:47 | NUR ---
Problems reprioritized. Patient report given, questions answered & plan of care reviewed with Jeanine ARSHAD RN.
--- NOTE | 2020-03-30 18:49 | NUR ---
Patient in room PCU 3014. I have received report from DEVON RUIZ and had the opportunity to ask questions and assume patient care.
[2020-03-30] MEDS: HYDROcodone/acetaminophen 10/325mg tab PO PRN (20:34)
[2020-03-30] MEDS: pantoprazole 40mg Tablet.DR PO SCH (20:40)
[2020-03-31 00:05] VITALS: BP 106/61
[2020-03-31] MEDS: magnesium Cl slow-release 64mg tablet PO PRN ×2 (00:28→07:50)
[2020-03-31 01:05] VITALS: BP 126/76
[2020-03-31] MEDS: HYDROcodone/acetaminophen 10/325mg tab PO PRN (01:32)
[2020-03-31] MEDS: morphine 2 MG/ML inj. syringe IV PRN ×2 (01:56→08:46)
[2020-03-31 02:05] VITALS: BP 133/78
[2020-03-31] MEDS: LIDOcaine 5% patch TP SCH (02:33)
[2020-03-31 03:00] VITALS: BP 124/78
[2020-03-31 05:59] LABS: BASOPHILS % (AUTO) 0.5 % (0-1); EOSINOPHILS # (AUTO) 0.5 X10'3 (0-0.9); EOSINOPHILS % (AUTO) 7.5 % (0-6); HEMATOCRIT 27.1 % (35.0-45.0); HEMOGLOBIN 9.1 g/dl (12.0-16.0); LYMPHOCYTES # (AUTO) 1.2 X10'3 (1.1-4.8); LYMPHOCYTES % (AUTO) 19.2 % (21-51); MEAN CORPUSCULAR HEMOGLOBIN 29.3 PG (27.0-31.0); MEAN CORPUSCULAR HGB CONC 33.6 g/dL (33.0-36.5); MEAN CORPUSCULAR VOLUME 87.1 FL (78-98); MEAN PLATELET VOLUME 6.9 FL (7.4-10.4); MONOCYTES # (AUTO) 0.6 X10'3 (0-0.9); MONOCYTES % (AUTO) 10.4 % (2-12); NEUTROPHILS # (AUTO) 3.9 X10'3 (1.8-7.7); NEUTROPHILS % (AUTO) 62.4 % (42-75); PLATELET COUNT 170 X10'3 (140-440); RED BLOOD COUNT 3.12 X10'6 (4.20-5.60); RED CELL DISTRIBUTION WIDTH 15.1 % (11.5-14.5); WHITE BLOOD COUNT 6.2 X10'3 (4.5-11.0)
[2020-03-31 06:00] VITALS: BP 126/85
--- NOTE | 2020-03-31 06:05 | NUR ---
Problems reprioritized. Patient report given, questions answered & plan of care reviewed with .
--- NOTE | 2020-03-31 06:10 | NUR ---
Patient in room PCU 3014. I have received report from Terra RUIZ and had the opportunity to ask questions and assume patient care.
[2020-03-31 06:23] LABS: ALBUMIN 2.4 G/DL (3.4-5.0); ANION GAP 4 (8-16); BLOOD UREA NITROGEN 9 MG/DL (7-18); BUN/CREATININE RATIO 14.1 (6.6-38.0); CALCIUM 8.2 MG/DL (8.5-10.1); CHLORIDE 103 MMOL/L (99-107); CREATININE 0.64 MG/DL (0.40-0.90); GLUCOSE 96 MG/DL (70-104); MAGNESIUM 1.4 MG/DL (1.5-2.4); POTASSIUM 3.2 MMOL/L (3.5-5.1); SODIUM 137 MMOL/L (135-145); TOTAL CARBON DIOXIDE 30.1 MMOL/L (24-32); eGFR > 90 ML/MIN
[2020-03-31] MEDS: pantoprazole 40mg Tablet.DR PO SCH (07:51)
[2020-03-31 07:53] VITALS: BP_SYST 126
[2020-03-31] MEDS: spironolactone 25 MG tablet PO SCH (07:53)
[2020-03-31] MEDS: magnesium oxide 400mg tablet PO SCH (07:53)
[2020-03-31] MEDS: furosemide 20MG tablet PO SCH (08:00)
[2020-03-31] MEDS ORDERED: sertraline 25mg tablet PO SCH (08:00)
[2020-03-31] MEDS ORDERED: furosemide 40mg/4ml inj IV SCH (08:00)
[2020-03-31] MEDS: K and/or MAG REPLACEMENT MC SCH (08:39)
[2020-03-31 11:50] LABS: HEMATOCRIT 27.8 % (35.0-45.0); HEMOGLOBIN 9.5 g/dl (12.0-16.0); MEAN CORPUSCULAR HEMOGLOBIN 29.4 PG (27.0-31.0); MEAN CORPUSCULAR HGB CONC 34.1 g/dL (33.0-36.5); MEAN CORPUSCULAR VOLUME 86.3 FL (78-98); MEAN PLATELET VOLUME 6.9 FL (7.4-10.4); PLATELET COUNT 166 X10'3 (140-440); RED BLOOD COUNT 3.22 X10'6 (4.20-5.60); WHITE BLOOD COUNT 6.6 X10'3 (4.5-11.0)
--- NOTE | 2020-03-31 12:44 | NUR ---
PAGER ID: [phone] MESSAGE: Re: Margie Addison. Room: 3014B. Hemogram resulted; same as AM draw. Pt curious about Discharge. -[facility] #[id number] Dr. Lock paged concerning Pt's hemogram results
--- NOTE | 2020-03-31 14:11 | NUR ---
PAGER ID: [phone] MESSAGE: Re: Margie Addison. Room: 3014B. Pt asking about Discharge today. H/H is stable from this morning. -[facility] #[id number] Dr. Lock paged concerning Pt;s DC
--- NOTE | 2020-03-31 15:00 | NUR ---
Pt DC'd home. IV removed, canula intact. Tele-box removed and returned to tele-tech. Pt alert and oriented and vitals WNL upon DC. Per Dr. Lock, Pt is safe for DC. DC paperwork printed out gone over with Pt. Allowed Pt to ask questions concerning DC and then answered them. No new meds for Pt. Pt stated that she will call Dr. Barry' office on Thursday and make a follow up appt. Pt also stated that she will call her PCP on Thursday to make a follow up appt. Pt's belongings gathered and sent with Pt. Pt wheeled down to lobby in wheelchair and left in private vehicle with friend for home.
== END 2020-03-31 15:00 | disposition home or self-care (01) | DRG 810 ==
LOC: ER 17:38 → ED HOLD 03-29 00:04 → PCU 3S 03-29 00:40
PROVIDERS: ADMIT Internal Medicine; ATTEND Family Medicine
PROC: 30233N1 Transfusion of Nonautologous Red Blood Cells into Peripheral Vein, Percutaneous Approach (ICD-10-PCS; principal; 2020-03-28)
DX: K91.841 Postprocedural hemorrhage of a digestive system organ or structure following other procedure (principal); D62 Acute posthemorrhagic anemia; K66.1 Hemoperitoneum; K21.9 Gastro-esophageal reflux disease without esophagitis; F32.9 Major depressive disorder, single episode, unspecified; F41.9 Anxiety disorder, unspecified; B19.20 Unspecified viral hepatitis C without hepatic coma; E87.6 Hypokalemia; F10.20 Alcohol dependence, uncomplicated
CPT/HCPCS: 36415; 36430; 74176; 80048; 80053; 81001; 83690; 83735; 85025; 85027; 85610; 86885; 86900; 86901; 86920; 87081; 87088; 96365; 99285; C9113; G0378; J1940; J2270; J2597; J3480; J7030; P9016

== ENCOUNTER 2020-06-27 05:36 | Emergency (ER) | payer MEDICAID ==
[~2020-06-27] VITALS: Ht 160 cm; Wt 63.6 kg
[~2020-06-27 05:36] MED LIST changes: +ESOM40CA PO; +GABA-530 PO; -HYDR-4353 PO; +MAGN400T29 PO; -PANT-47 PO; +SERT25TA PO
[2020-06-27 05:40] VITALS: BP 177/95
[2020-06-27] MEDS ORDERED: AZIT250T81 PO (06:24)
[2020-06-27] MEDS ORDERED: NAPR-56 PO (06:24)
[2020-06-27] MEDS ORDERED: azithromycin 250mg tablet PO ONE (06:25)
== END 2020-06-27 07:11 | disposition home or self-care (01) ==
LOC: ER 05:37
DX: R05 Cough (principal); Z20.828 Contact with and (suspected) exposure to other viral communicable diseases; H66.92 Otitis media, unspecified, left ear; K21.9 Gastro-esophageal reflux disease without esophagitis; J45.909 Unspecified asthma, uncomplicated; F15.90 Other stimulant use, unspecified, uncomplicated; Z86.19 Personal history of other infectious and parasitic diseases; Z56.0 Unemployment, unspecified; Z60.9 Problem related to social environment, unspecified; Z72.89 Other problems related to lifestyle; Z98.890 Other specified postprocedural states; Z79.2 Long term (current) use of antibiotics; Z79.899 Other long term (current) drug therapy
CPT/HCPCS: 36415; 71045; 87635; 99284

== ENCOUNTER 2020-07-03 11:46 | Emergency (ER) | payer MEDICAID ==
[~2020-07-03] VITALS: Ht 160 cm; Wt 64.5 kg
[~2020-07-03 11:46] MED LIST changes: +NAPR-56 PO
--- NOTE | 2020-07-03 12:00 | NUR ---
PATIENT WAS INFORMED THAT HER COVID TEST WAS NEGATIVE AND DEPARTED FROM ER.
== END 2020-07-03 12:14 | disposition home or self-care (01) ==
LOC: ER 11:49
DX: R05 Cough (principal); R53.83 Other fatigue; K21.9 Gastro-esophageal reflux disease without esophagitis; F15.90 Other stimulant use, unspecified, uncomplicated; Z60.9 Problem related to social environment, unspecified; Z56.0 Unemployment, unspecified; Z98.890 Other specified postprocedural states; Z90.49 Acquired absence of other specified parts of digestive tract; Z98.891 History of uterine scar from previous surgery; Z79.2 Long term (current) use of antibiotics; Z79.899 Other long term (current) drug therapy
CPT/HCPCS: 99281

== ENCOUNTER 2020-08-05 12:56 | Emergency (ER) | payer MEDICAID ==
[~2020-08-05] VITALS: Ht 160 cm; Wt 61.4 kg
[~2020-08-05 12:56] MED LIST changes: -NAPR-56 PO
[2020-08-05 13:04] VITALS: BP 174/98
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
[2020-08-05] MEDS ORDERED: FURO20TA4 PO (14:05)
[2020-08-05] MEDS ORDERED: PANT40TA54 PO (14:05)
[2020-08-05] MEDS ORDERED: SERT100T10 PO (14:05)
== END 2020-08-05 15:45 | disposition left against medical advice (07) ==
LOC: ER 12:56
DX: R04.0 Epistaxis (principal); Z53.21 Procedure and treatment not carried out due to patient leaving prior to being seen by health care provider

== ENCOUNTER 2020-08-08 09:38 | Emergency (ER) | payer MEDICAID ==
[~2020-08-08] VITALS: Ht 160 cm; Wt 61.4 kg
[~2020-08-08 09:38] MED LIST changes: -ESOM40CA PO; -FURO-150 PO; +FURO20TA4 PO; -GABA-530 PO; +PANT40TA54 PO; +SERT100T10 PO; -SERT25TA PO
--- NOTE | 2020-08-08 11:25 | NUR ---
PT OUT TO HAVE CT
[2020-08-08] MEDS ORDERED: AMOX-115 PO (11:32)
[2020-08-08] MEDS ORDERED: NAPR-56 PO (11:32)
[2020-08-08 11:59] VITALS: BP 141/84
== END 2020-08-08 12:03 | disposition home or self-care (01) ==
LOC: ER 09:39
DX: S02.2XXA Fracture of nasal bones, initial encounter for closed fracture (principal); S00.83XA Contusion of other part of head, initial encounter; K04.7 Periapical abscess without sinus; M54.9 Dorsalgia, unspecified; K21.9 Gastro-esophageal reflux disease without esophagitis; K72.90 Hepatic failure, unspecified without coma; F15.90 Other stimulant use, unspecified, uncomplicated; Z86.19 Personal history of other infectious and parasitic diseases; Z90.49 Acquired absence of other specified parts of digestive tract; Z98.891 History of uterine scar from previous surgery; Z72.89 Other problems related to lifestyle; Z59.0 Homelessness; Z79.899 Other long term (current) drug therapy; Y09 Assault by unspecified means; Y93.9 Activity, unspecified; Y92.89 Other specified places as the place of occurrence of the external cause; Y99.8 Other external cause status
CPT/HCPCS: 70486; 99284

== ENCOUNTER 2020-10-25 19:33 | Emergency (ER) | payer MEDICAID ==
[~2020-10-25] VITALS: Ht 160 cm; Wt 65.5 kg
[~2020-10-25 19:33] MED LIST changes: +SERT-434 PO; -SERT100T10 PO
[2020-10-25 20:34] LABS: URINE HCG NEGATIVE (NEG)
[2020-10-25 20:35] LABS: CLARITY,URINE CLOUDY (Clear); COLOR,URINE YELLOW (Yellow); GLUCOSE, URINE NEGATIVE (Neg); KETONES,URINE NEGATIVE (Neg); LEUKOCYTE ESTERASE ,URINE MODERATE (Neg); NITRITES, URINE POSITIVE (Neg); OCCULT BLOOD,URINE MODERATE (Neg); PH,URINE 6.5 (4.8-8.0); PROTEIN,URINE NEGATIVE (Neg)
[2020-10-25 20:36] LABS: BASOPHILS % (AUTO) 0.9 % (0-1); EOSINOPHILS # (AUTO) 0.2 X10'3 (0-0.9); EOSINOPHILS % (AUTO) 3.9 % (0-6); HEMATOCRIT 38.1 % (35.0-45.0); HEMOGLOBIN 12.8 g/dl (12.0-16.0); LYMPHOCYTES # (AUTO) 1.1 X10'3 (1.1-4.8); LYMPHOCYTES % (AUTO) 19.9 % (21-51); MEAN CORPUSCULAR HEMOGLOBIN 30.8 PG (27.0-31.0); MEAN CORPUSCULAR HGB CONC 33.5 g/dL (33.0-36.5); MEAN CORPUSCULAR VOLUME 91.7 FL (78-98); MEAN PLATELET VOLUME 6.6 FL (7.4-10.4); MONOCYTES # (AUTO) 0.7 X10'3 (0-0.9); MONOCYTES % (AUTO) 12.4 % (2-12); NEUTROPHILS # (AUTO) 3.3 X10'3 (1.8-7.7); NEUTROPHILS % (AUTO) 62.9 % (42-75); PLATELET COUNT 131 X10'3 (140-440); RED BLOOD COUNT 4.16 X10'6 (4.20-5.60); WHITE BLOOD COUNT 5.3 X10'3 (4.5-11.0)
[2020-10-25 20:38] LABS: UA COLLECTION TYPE CLN CATCH MIDSTREAM
[2020-10-25] MEDS ORDERED: iohexol 300mg/ml 100ml inj. ONE (20:39)
[2020-10-25] MEDS ORDERED: normal saline 1000ml 1,000 ML IV ONE (20:40)
[2020-10-25] MEDS ORDERED: morphine 4 MG/ML inj SYRINge IV ONE (20:40)
[2020-10-25] MEDS ORDERED: ondansetron/PF 4mg/2ml inj IV ONE (20:40)
[2020-10-25 20:46] LABS: ALANINE AMINOTRANSFERASE 55 U/L (12-78); ALBUMIN 3.2 G/DL (3.4-5.0); ALBUMIN/GLOBULIN RATIO 0.6 (1.1-1.5); ALKALINE PHOSPHATASE 168 IU/L (46-116); ANION GAP 10 (8-16); ASPARTATE AMINO TRANSFERASE 95 U/L (10-37); BILIRUBIN,TOTAL 0.8 MG/DL (0.1-1.0); BLOOD UREA NITROGEN 6 MG/DL (7-18); BUN/CREATININE RATIO 8.7 (6.6-38.0); CALCIUM 8.8 MG/DL (8.5-10.1); CHLORIDE 97 MMOL/L (99-107); CREATININE 0.69 MG/DL (0.40-0.90); LIPASE 92 U/L (73-393); POTASSIUM 3.8 MMOL/L (3.5-5.1); SODIUM 133 MMOL/L (135-145); TOTAL CARBON DIOXIDE 25.7 MMOL/L (24-32); TOTAL PROTEIN 8.9 G/DL (6.4-8.2); eGFR 89 ML/MIN
[2020-10-25 20:47] LABS: GLUCOSE 105 MG/DL (70-104)
[2020-10-25 20:48] LABS: WBC,URINE 30-50 /HPF (0-4)
[2020-10-25 20:49] LABS: BACTERIA,URINE 4+ /HPF (Neg)
[2020-10-25 20:50] LABS: SQUAMOUS EPITHELIAL CELL,UR MODERATE /LPF (FEW); TRANSITIONAL EPI CELLS,URINE FEW /HPF; WBC CLUMPS,URINE MODERATE /HPF (NEGATIVE)
[2020-10-25 20:56] LABS: PARTIAL THROMBOPLASTIN TIME 30 SECONDS (22-32)
[2020-10-25] MEDS ORDERED: CEPH250T PO (21:45)
[2020-10-25] MEDS ORDERED: PANT20TA18 PO (21:45)
[2020-10-25] MEDS ORDERED: PHEN-786 PO (21:45)
[2020-10-25 22:04] VITALS: BP 124/74
== END 2020-10-25 22:07 | disposition home or self-care (01) ==
LOC: ER 19:34
DX: K29.20 Alcoholic gastritis without bleeding (principal); N39.0 Urinary tract infection, site not specified; R11.2 Nausea with vomiting, unspecified; R10.84 Generalized abdominal pain; K21.9 Gastro-esophageal reflux disease without esophagitis; F41.9 Anxiety disorder, unspecified; F32.9 Major depressive disorder, single episode, unspecified; F15.90 Other stimulant use, unspecified, uncomplicated; Z86.19 Personal history of other infectious and parasitic diseases; Z90.49 Acquired absence of other specified parts of digestive tract; Z98.890 Other specified postprocedural states; Z72.89 Other problems related to lifestyle; Z60.2 Problems related to living alone; Z56.0 Unemployment, unspecified; Z79.2 Long term (current) use of antibiotics; Z79.899 Other long term (current) drug therapy
CPT/HCPCS: 36415; 74177; 80053; 81001; 81025; 83690; 85025; 85610; 85730; 87077; 87088; 87186; 96361; 96374; 96375; 99285; J2270; J2405; J7030; Q9967

== ENCOUNTER 2021-04-20 14:19 | Emergency (ER) | payer MEDICAID ==
[~2021-04-20] VITALS: Ht 160 cm; Wt 61.0 kg
[~2021-04-20 14:19] MED LIST changes: +PANT20TA18 PO; +PHEN-786 PO
[2021-04-20 14:25] VITALS: BP 169/100
[2021-04-20 15:23] LABS: BASOPHILS # (AUTO) 0.1 X10'3 (0-0.2); EOSINOPHILS # (AUTO) 0.3 X10'3 (0-0.9); EOSINOPHILS % (AUTO) 5.3 % (0-6); HEMATOCRIT 38.2 % (35.0-45.0); LYMPHOCYTES # (AUTO) 1.9 X10'3 (1.1-4.8); LYMPHOCYTES % (AUTO) 30.4 % (21-51); MEAN CORPUSCULAR HEMOGLOBIN 28.7 PG (27.0-31.0); MEAN CORPUSCULAR HGB CONC 34.1 g/dL (33.0-36.5); MEAN CORPUSCULAR VOLUME 84.1 FL (78-98); MEAN PLATELET VOLUME 6.8 FL (7.4-10.4); MONOCYTES # (AUTO) 0.6 X10'3 (0-0.9); MONOCYTES % (AUTO) 10.1 % (2-12); NEUTROPHILS # (AUTO) 3.4 X10'3 (1.8-7.7); NEUTROPHILS % (AUTO) 53.2 % (42-75); PLATELET COUNT 194 X10'3 (140-440); RED BLOOD COUNT 4.55 X10'6 (4.20-5.60); RED CELL DISTRIBUTION WIDTH 16.5 % (11.5-14.5); WHITE BLOOD COUNT 6.4 X10'3 (4.5-11.0)
[2021-04-20 15:37] LABS: ALANINE AMINOTRANSFERASE 101 U/L (12-78); ALBUMIN 3.3 G/DL (3.4-5.0); ALBUMIN/GLOBULIN RATIO 0.6 (1.1-1.5); ALKALINE PHOSPHATASE 167 IU/L (46-116); ANION GAP 9 (8-16); ASPARTATE AMINO TRANSFERASE 156 U/L (10-37); BILIRUBIN,TOTAL 0.4 MG/DL (0.1-1.0); BLOOD UREA NITROGEN 12 MG/DL (7-18); BUN/CREATININE RATIO 13.3 (6.6-38.0); CALCIUM 9.2 MG/DL (8.5-10.1); CHLORIDE 100 MMOL/L (99-107); SODIUM 135 MMOL/L (135-145); TOTAL CARBON DIOXIDE 25.9 MMOL/L (24-32); TOTAL PROTEIN 9.2 G/DL (6.4-8.2); eGFR 65 ML/MIN
[2021-04-20 15:38] LABS: GLUCOSE 135 MG/DL (70-104)
[2021-04-21] MEDS ORDERED: morphine 2 MG/ML inj. syringe IV PRN (19:35)
== END 2021-04-20 18:10 | disposition left against medical advice (07) ==
LOC: ER 14:20
DX: R10.9 Unspecified abdominal pain (principal); Z53.21 Procedure and treatment not carried out due to patient leaving prior to being seen by health care provider
CPT/HCPCS: 36415; 72100; 80053; 85025

== ENCOUNTER 2021-04-23 11:12 | Emergency (ER) | payer MEDICAID ==
[~2021-04-23] VITALS: Ht 160 cm; Wt 61.4 kg
[2021-04-23 12:02] VITALS: BP 158/90
[2021-04-23 12:40] LABS: BASOPHILS # (AUTO) 0.1 X10'3 (0-0.2); BASOPHILS % (AUTO) 1.7 % (0-1); EOSINOPHILS # (AUTO) 0.3 X10'3 (0-0.9); EOSINOPHILS % (AUTO) 3.7 % (0-6); LYMPHOCYTES # (AUTO) 2.5 X10'3 (1.1-4.8); LYMPHOCYTES % (AUTO) 32.3 % (21-51); MEAN CORPUSCULAR HEMOGLOBIN 28.9 PG (27.0-31.0); MEAN PLATELET VOLUME 7.3 FL (7.4-10.4); MONOCYTES # (AUTO) 0.7 X10'3 (0-0.9); MONOCYTES % (AUTO) 8.5 % (2-12); NEUTROPHILS # (AUTO) 4.2 X10'3 (1.8-7.7); NEUTROPHILS % (AUTO) 53.8 % (42-75); PLATELET COUNT 273 X10'3 (140-440); RED BLOOD COUNT 4.83 X10'6 (4.20-5.60); RED CELL DISTRIBUTION WIDTH 16.3 % (11.5-14.5); WHITE BLOOD COUNT 7.8 X10'3 (4.5-11.0)
[2021-04-23 12:49] LABS: ALANINE AMINOTRANSFERASE 110 U/L (12-78); ALBUMIN 3.5 G/DL (3.4-5.0); ALBUMIN/GLOBULIN RATIO 0.5 (1.1-1.5); ALKALINE PHOSPHATASE 159 IU/L (46-116); ANION GAP 14 (8-16); BILIRUBIN,TOTAL 0.6 MG/DL (0.1-1.0); BLOOD UREA NITROGEN 14 MG/DL (7-18); BUN/CREATININE RATIO 14.6 (6.6-38.0); CHLORIDE 101 MMOL/L (99-107); CREATININE 0.96 MG/DL (0.40-0.90); SODIUM 135 MMOL/L (135-145); TOTAL PROTEIN 10.1 G/DL (6.4-8.2); eGFR 60 ML/MIN
[2021-04-23 12:52] LABS: ASPARTATE AMINO TRANSFERASE 183 U/L (10-37); GLUCOSE 115 MG/DL (70-104); POTASSIUM 4.1 MMOL/L (3.5-5.1)
[2021-04-23 12:55] LABS: URINE AMPHETAMINE SCREEN POSITIVE (Neg); URINE BARBITUATE SCREEN NEGATIVE (Neg); URINE BENZODIAZEPINES SCREEN NEGATIVE (Neg); URINE CANNABINOID SCREEN POSITIVE (Neg); URINE COCAINE SCREEN NEGATIVE (Neg); URINE METHADONE SCREEN NEGATIVE (Neg); URINE OPIATE SCREEN NEGATIVE (Neg); URINE PHENCYCLIDINE SCREEN NEGATIVE (Neg)
[2021-04-23 13:09] LABS: CLARITY,URINE CLEAR (Clear); COLOR,URINE YELLOW (Yellow); GLUCOSE, URINE NEGATIVE (Neg); KETONES,URINE NEGATIVE (Neg); LEUKOCYTE ESTERASE ,URINE NEGATIVE (Neg); NITRITES, URINE NEGATIVE (Neg); OCCULT BLOOD,URINE NEGATIVE (Neg); PROTEIN,URINE NEGATIVE (Neg); UA COLLECTION TYPE NON-SPECIFIED; UROBILINOGEN,URINE 0.2 E.U/dL (0.2-1.0)
== END 2021-04-23 15:45 | disposition left against medical advice (07) ==
LOC: ER 11:12
DX: R10.13 Epigastric pain (principal); R10.11 Right upper quadrant pain; K21.9 Gastro-esophageal reflux disease without esophagitis; K72.90 Hepatic failure, unspecified without coma; Z86.19 Personal history of other infectious and parasitic diseases; Z90.49 Acquired absence of other specified parts of digestive tract; Z98.891 History of uterine scar from previous surgery; Z72.89 Other problems related to lifestyle; Z59.00 Homelessness unspecified; Z98.890 Other specified postprocedural states
CPT/HCPCS: 36415; 80053; 80305; 81003; 85025; 99283

== ENCOUNTER 2021-08-18 18:55 | Emergency (ER) | payer MEDICAID ==
[~2021-08-18] VITALS: Ht 152.4 cm; Wt 65.9 kg
[2021-08-18 19:03] VITALS: BP 163/93
[2021-08-18] MEDS ORDERED: normal saline 1000ML IV soln IVB ONE (22:25)
[2021-08-18] MEDS ORDERED: ondansetron/PF 4mg/2ml inj IV ONE (22:25)
[2021-08-18] MEDS ORDERED: iohexol 300mg/ml 100ml inj. ONE (22:26)
[2021-08-18] MEDS ORDERED: morphine 4 MG/ML inj SYRINge IV ONE (22:55)
[2021-08-18] MEDS ORDERED: AMOX-117 PO (23:20)
[2021-08-18] MEDS ORDERED: HYDR-3964 PO (23:24)
[2021-08-18] MEDS ORDERED: ONDA4TAB12 PO (23:24)
== END 2021-08-18 23:47 | disposition home or self-care (01) ==
LOC: ER 18:55
DX: T81.9XXA Unspecified complication of procedure, initial encounter (principal); F41.9 Anxiety disorder, unspecified; F32.9 Major depressive disorder, single episode, unspecified; F15.10 Other stimulant abuse, uncomplicated; Z79.899 Other long term (current) drug therapy
CPT/HCPCS: 70487; 74176; 96374; 96375; 99285; J2270; J2405; J7030; Q9967; 96361

== ENCOUNTER 2021-11-07 16:14 | Emergency (ER) | payer MEDICAID ==
[~2021-11-07] VITALS: Ht 160 cm; Wt 65.0 kg
[~2021-11-07 16:14] MED LIST changes: +ONDA4TAB12 PO
[2021-11-07 17:02] VITALS: BP 135/92
[2021-11-07 17:21] LABS: BASOPHILS # (AUTO) 0.1 X10'3 (0-0.2); BASOPHILS % (AUTO) 1.2 % (0-1); EOSINOPHILS # (AUTO) 0.2 X10'3 (0-0.9); EOSINOPHILS % (AUTO) 2.8 % (0-6); HEMATOCRIT 42.1 % (35.0-45.0); HEMOGLOBIN 14.2 g/dl (12.0-16.0); LYMPHOCYTES # (AUTO) 2.3 X10'3 (1.1-4.8); LYMPHOCYTES % (AUTO) 33.6 % (21-51); MEAN CORPUSCULAR HEMOGLOBIN 29.3 PG (27.0-31.0); MEAN CORPUSCULAR HGB CONC 33.8 g/dL (33.0-36.5); MEAN CORPUSCULAR VOLUME 86.6 FL (78-98); MEAN PLATELET VOLUME 7.1 FL (7.4-10.4); MONOCYTES # (AUTO) 0.6 X10'3 (0-0.9); MONOCYTES % (AUTO) 8.2 % (2-12); NEUTROPHILS # (AUTO) 3.7 X10'3 (1.8-7.7); NEUTROPHILS % (AUTO) 54.2 % (42-75); PLATELET COUNT 187 X10'3 (140-440); RED BLOOD COUNT 4.86 X10'6 (4.20-5.60); RED CELL DISTRIBUTION WIDTH 15.1 % (11.5-14.5); WHITE BLOOD COUNT 6.8 X10'3 (4.5-11.0)
[2021-11-07 17:35] LABS: ALANINE AMINOTRANSFERASE 83 U/L (12-78); ALBUMIN 3.3 G/DL (3.4-5.0); ALBUMIN/GLOBULIN RATIO 0.5 (1.1-1.5); ALKALINE PHOSPHATASE 219 IU/L (46-116); ANION GAP 12 (8-16); ASPARTATE AMINO TRANSFERASE 244 U/L (10-37); BILIRUBIN,TOTAL 1.1 MG/DL (0.1-1.0); BLOOD UREA NITROGEN 10 MG/DL (7-18); BUN/CREATININE RATIO 10.9 (6.6-38.0); CALCIUM 9.6 MG/DL (8.5-10.1); CHLORIDE 105 MMOL/L (99-107); CREATININE 0.92 MG/DL (0.40-0.90); LIPASE 100 U/L (73-393); POTASSIUM 3.6 MMOL/L (3.5-5.1); SODIUM 142 MMOL/L (135-145); TOTAL CARBON DIOXIDE 25.1 MMOL/L (24-32); TOTAL PROTEIN 9.8 G/DL (6.4-8.2); eGFR 63 ML/MIN
[2021-11-07 17:47] LABS: GLUCOSE 115 MG/DL (70-104)
[2021-11-07 18:07] LABS: CLARITY,URINE TURBID (Clear); COLOR,URINE YELLOW (Yellow); GLUCOSE, URINE NEGATIVE (Neg); KETONES,URINE NEGATIVE (Neg); LEUKOCYTE ESTERASE ,URINE NEGATIVE (Neg); NITRITES, URINE POSITIVE (Neg); OCCULT BLOOD,URINE TRACE-INTACT (Neg); PROTEIN,URINE NEGATIVE (Neg)
[2021-11-07 18:08] LABS: UA COLLECTION TYPE CLN CATCH MIDSTREAM
[2021-11-07 18:16] LABS: AMORPHOUS URATES 2+; BACTERIA,URINE FEW /HPF (Neg); RBC,URINE 0-2 /HPF (0-2); SQUAMOUS EPITHELIAL CELL,UR FEW /LPF (FEW); WBC,URINE NONE SEEN /HPF (0-4)
[2021-11-08] MEDS ORDERED: PANT-47 PO (21:20)
[2021-11-08] MEDS ORDERED: ONDA4TAB12 PO (21:20)
== END 2021-11-07 23:47 | disposition left against medical advice (07) ==
LOC: ER 16:14
DX: R10.9 Unspecified abdominal pain (principal); Z53.21 Procedure and treatment not carried out due to patient leaving prior to being seen by health care provider
CPT/HCPCS: 36415; 80053; 81001; 83690; 85025; 87088

== ENCOUNTER 2021-11-08 10:44 | Emergency (ER) | payer MEDICAID ==
[~2021-11-08] VITALS: Ht 160 cm; Wt 65.0 kg
[2021-11-08 12:29] LABS: BASOPHILS # (AUTO) 0.1 X10'3 (0-0.2); BASOPHILS % (AUTO) 1.1 % (0-1); EOSINOPHILS # (AUTO) 0.2 X10'3 (0-0.9); EOSINOPHILS % (AUTO) 3.9 % (0-6); HEMATOCRIT 38.4 % (35.0-45.0); HEMOGLOBIN 12.9 g/dl (12.0-16.0); LYMPHOCYTES # (AUTO) 1.3 X10'3 (1.1-4.8); LYMPHOCYTES % (AUTO) 29.9 % (21-51); MEAN CORPUSCULAR HEMOGLOBIN 29.1 PG (27.0-31.0); MEAN CORPUSCULAR HGB CONC 33.5 g/dL (33.0-36.5); MEAN CORPUSCULAR VOLUME 86.8 FL (78-98); MEAN PLATELET VOLUME 7.2 FL (7.4-10.4); MONOCYTES # (AUTO) 0.5 X10'3 (0-0.9); MONOCYTES % (AUTO) 12.1 % (2-12); NEUTROPHILS # (AUTO) 2.4 X10'3 (1.8-7.7); PLATELET COUNT 136 X10'3 (140-440); RED BLOOD COUNT 4.42 X10'6 (4.20-5.60); WHITE BLOOD COUNT 4.5 X10'3 (4.5-11.0)
[2021-11-08 12:39] LABS: ALANINE AMINOTRANSFERASE 71 U/L (12-78); ALBUMIN 2.9 G/DL (3.4-5.0); ALBUMIN/GLOBULIN RATIO 0.5 (1.1-1.5); ALKALINE PHOSPHATASE 201 IU/L (46-116); ANION GAP 8 (8-16); ASPARTATE AMINO TRANSFERASE 180 U/L (10-37); BILIRUBIN,TOTAL 1.1 MG/DL (0.1-1.0); BLOOD UREA NITROGEN 9 MG/DL (7-18); BUN/CREATININE RATIO 12.9 (6.6-38.0); CALCIUM 8.8 MG/DL (8.5-10.1); CHLORIDE 101 MMOL/L (99-107); POTASSIUM 3.6 MMOL/L (3.5-5.1); SODIUM 137 MMOL/L (135-145); TOTAL CARBON DIOXIDE 27.6 MMOL/L (24-32); TOTAL PROTEIN 8.9 G/DL (6.4-8.2); eGFR 87 ML/MIN
[2021-11-08 12:45] LABS: GLUCOSE 115 MG/DL (70-104)
--- NOTE | 2021-11-08 14:17 | NUR ---
PT AMB WITH STEADY GAIT TO TRIAGE, SKIN P/W/D, RESP EVEN AND UNLABORED, WAITING FOR BED IN ER, NONE ARE AVAILABLE, PT STATED SHE HAD A "DARK TARRY STOOL" WHILE WAITING IN LOBBY
--- NOTE | 2021-11-08 19:20 | NUR ---
PT ROOMED AND CHANGED INTO A ROOM. ASSUMED CARE OF PT.
[2021-11-08] MEDS ORDERED: morphine 4 MG/ML inj SYRINge IV ONE (19:25)
[2021-11-08] MEDS ORDERED: ondansetron/PF 4mg/2ml inj IV ONE (19:25)
[2021-11-08] MEDS ORDERED: normal saline 1000ml 1,000 ML IV ONE (19:25)
--- NOTE | 2021-11-08 19:30 | NUR ---
LAM GARCIA IN ROOM TALKING TO PT
--- NOTE | 2021-11-08 19:36 | NUR ---
PT TAKEN TO CT
--- NOTE | 2021-11-08 21:14 | NUR ---
PT USED BEDSIDE COMMODE UNDER MY CAREFUL SUPERVISION. I REMAINED CLOSE TO PT BUT SHE GOT UP FROM THE BED ON HER OWN, WALKED TO BEDSIDE COMMODE TO URINATE, GOT BACK UP ON HER OWN, PULLED HER PANTS AND BRIEFS UP ON HER OWN, AND THEN WALKED BACK TO HER BED AND RAISED HER LEGS UP ON THE BED ON HER OWN. NO ONE SIDE WEAKNESS NOTED. SIDE RAILS BACK ON. PT ON BELLY DANCER.
[2021-11-08] MEDS ORDERED: ONDA4TAB12 PO (21:20)
[2021-11-08] MEDS ORDERED: PANT-47 PO (21:20)
[2021-11-08 21:38] VITALS: BP 161/89
== END 2021-11-08 21:40 | disposition home or self-care (01) ==
LOC: ER 10:44
DX: K29.00 Acute gastritis without bleeding (principal); R31.9 Hematuria, unspecified; K21.9 Gastro-esophageal reflux disease without esophagitis; F31.9 Bipolar disorder, unspecified; F15.10 Other stimulant abuse, uncomplicated; Z56.0 Unemployment, unspecified; Z79.899 Other long term (current) drug therapy
CPT/HCPCS: 36415; 74176; 80053; 85025; 96365; 96375; 99285; J2270; J2405; J7030

== ENCOUNTER 2021-12-27 11:54 | Emergency (ER) | payer MEDICAID ==
[~2021-12-27] VITALS: Ht 160 cm; Wt 65.0 kg
[~2021-12-27 11:54] MED LIST changes: +PANT-47 PO
[2021-12-27 13:57] LABS: HEMOGLOBIN 13.5 g/dl (12.0-16.0); MEAN PLATELET VOLUME 7.2 FL (7.4-10.4); MONOCYTES # (AUTO) 0.4 X10'3 (0-0.9); NEUTROPHILS # (AUTO) 2.7 X10'3 (1.8-7.7); RED BLOOD COUNT 4.56 X10'6 (4.20-5.60)
[2021-12-27 14:00] LABS: BASOPHILS % (AUTO) 1.1 % (0-1); EOSINOPHILS % (AUTO) 0.8 % (0-6); HEMATOCRIT 40.3 % (35.0-45.0); LYMPHOCYTES # (AUTO) 0.7 X10'3 (1.1-4.8); LYMPHOCYTES % (AUTO) 18.5 % (21-51); MEAN CORPUSCULAR HEMOGLOBIN 29.6 PG (27.0-31.0); MEAN CORPUSCULAR HGB CONC 33.5 g/dL (33.0-36.5); MEAN CORPUSCULAR VOLUME 88.5 FL (78-98); MONOCYTES % (AUTO) 9.9 % (2-12); NEUTROPHILS % (AUTO) 69.7 % (42-75); PLATELET COUNT 157 X10'3 (140-440); RED CELL DISTRIBUTION WIDTH 14.3 % (11.5-14.5); WHITE BLOOD COUNT 3.8 X10'3 (4.5-11.0)
[2021-12-27 14:12] LABS: ALANINE AMINOTRANSFERASE 38 U/L (12-78); ALBUMIN/GLOBULIN RATIO 0.5 (1.1-1.5); ALKALINE PHOSPHATASE 172 IU/L (46-116); ANION GAP 7 (8-16); ASPARTATE AMINO TRANSFERASE 107 U/L (10-37); BILIRUBIN,TOTAL 1.4 MG/DL (0.1-1.0); BLOOD UREA NITROGEN 7 MG/DL (7-18); BUN/CREATININE RATIO 8.3 (6.6-38.0); CHLORIDE 100 MMOL/L (99-107); CREATININE 0.84 MG/DL (0.40-0.90); LIPASE 103 U/L (73-393); POTASSIUM 3.5 MMOL/L (3.5-5.1); SODIUM 136 MMOL/L (135-145); TOTAL CARBON DIOXIDE 28.9 MMOL/L (24-32); TOTAL PROTEIN 9.6 G/DL (6.4-8.2); eGFR 70 ML/MIN
[2021-12-27 14:13] LABS: GLUCOSE 124 MG/DL (70-104)
[2021-12-27 15:54] LABS: CLARITY,URINE CLEAR (Clear); COLOR,URINE YELLOW (Yellow); GLUCOSE, URINE 100 mg/dl (Neg); KETONES,URINE TRACE mg/dl (Neg); LEUKOCYTE ESTERASE ,URINE NEGATIVE (Neg); NITRITES, URINE NEGATIVE (Neg); OCCULT BLOOD,URINE TRACE-INTACT (Neg); PROTEIN,URINE TRACE mg/dl (Neg)
[2021-12-27 15:57] LABS: UA COLLECTION TYPE CLN CATCH MIDSTREAM
[2021-12-27 16:07] LABS: SQUAMOUS EPITHELIAL CELL,UR MANY /LPF (FEW)
[2021-12-27 16:10] LABS: BACTERIA,URINE 1+ /HPF (Neg); RBC,URINE 0-2 /HPF (0-2); WBC,URINE 0-4 /HPF (0-4)
[2021-12-27 16:17] LABS: RENAL CELLS, URINE FEW /HPF; TRANSITIONAL EPI CELLS,URINE FEW /HPF
[2021-12-27] MEDS ORDERED: normal saline 1000ML IV soln IVB ONE (16:45)
[2021-12-27] MEDS ORDERED: ONDA-103 PO (17:02)
[2021-12-27] MEDS ORDERED: diphenhydrAMINE 50 mg/ml inj IV ONE (17:05)
[2021-12-27] MEDS ORDERED: ondansetron/PF 4mg/2ml inj IV ONE (17:05)
[2021-12-27 17:47] VITALS: BP 150/71
== END 2021-12-27 18:23 | disposition home or self-care (01) ==
LOC: ER 11:55
DX: R11.2 Nausea with vomiting, unspecified (principal); R19.7 Diarrhea, unspecified; Z20.822 Contact with and (suspected) exposure to COVID-19; R10.9 Unspecified abdominal pain; F10.10 Alcohol abuse, uncomplicated; F15.90 Other stimulant use, unspecified, uncomplicated; K21.9 Gastro-esophageal reflux disease without esophagitis; F41.9 Anxiety disorder, unspecified; F32.9 Major depressive disorder, single episode, unspecified; Z86.19 Personal history of other infectious and parasitic diseases; Z90.49 Acquired absence of other specified parts of digestive tract; Z98.890 Other specified postprocedural states; Z60.2 Problems related to living alone; Z56.0 Unemployment, unspecified; Z72.89 Other problems related to lifestyle; Z79.899 Other long term (current) drug therapy; Y90.9 Presence of alcohol in blood, level not specified
CPT/HCPCS: 36415; 80053; 81001; 83690; 85025; 87635; 96361; 96374; 96375; 99284; C9803; J1200; J2405; J7030

== ENCOUNTER 2022-03-08 18:19 | Emergency (ER) | payer MEDICAID ==
[~2022-03-08] VITALS: Ht 160 cm; Wt 63.2 kg
[~2022-03-08 18:19] MED LIST changes: +ONDA-103 PO
[2022-03-08 18:32] VITALS: BP 148/93
[2022-03-08 18:58] LABS: BASOPHILS # (AUTO) 0.1 X10'3 (0-0.2); BASOPHILS % (AUTO) 0.8 % (0-1); EOSINOPHILS # (AUTO) 0.1 X10'3 (0-0.9); EOSINOPHILS % (AUTO) 1.7 % (0-6); HEMATOCRIT 38.4 % (35.0-45.0); HEMOGLOBIN 13.3 g/dl (12.0-16.0); LYMPHOCYTES % (AUTO) 12.6 % (21-51); MEAN CORPUSCULAR HEMOGLOBIN 31.7 PG (27.0-31.0); MEAN CORPUSCULAR HGB CONC 34.7 g/dL (33.0-36.5); MEAN CORPUSCULAR VOLUME 91.1 FL (78-98); MEAN PLATELET VOLUME 7.1 FL (7.4-10.4); MONOCYTES # (AUTO) 0.6 X10'3 (0-0.9); MONOCYTES % (AUTO) 8.2 % (2-12); NEUTROPHILS # (AUTO) 5.8 X10'3 (1.8-7.7); NEUTROPHILS % (AUTO) 76.7 % (42-75); PLATELET COUNT 142 X10'3 (140-440); RED BLOOD COUNT 4.21 X10'6 (4.20-5.60); RED CELL DISTRIBUTION WIDTH 13.6 % (11.5-14.5); WHITE BLOOD COUNT 7.6 X10'3 (4.5-11.0)
[2022-03-08 19:15] LABS: ALANINE AMINOTRANSFERASE 58 U/L (12-78); ALBUMIN 2.8 G/DL (3.4-5.0); ALBUMIN/GLOBULIN RATIO 0.4 (1.1-1.5); ALKALINE PHOSPHATASE 175 IU/L (46-116); ANION GAP 9 (8-16); ASPARTATE AMINO TRANSFERASE 181 U/L (10-37); BILIRUBIN,TOTAL 0.9 MG/DL (0.1-1.0); BLOOD UREA NITROGEN 7 MG/DL (7-18); BUN/CREATININE RATIO 7.6 (6.6-38.0); CALCIUM 8.6 MG/DL (8.5-10.1); CHLORIDE 101 MMOL/L (99-107); CREATININE 0.92 MG/DL (0.40-0.90); LIPASE 169 U/L (73-393); SODIUM 138 MMOL/L (135-145); TOTAL CARBON DIOXIDE 27.8 MMOL/L (24-32); TOTAL PROTEIN 9.2 G/DL (6.4-8.2); eGFR 63 ML/MIN
[2022-03-08 19:28] LABS: GLUCOSE 113 MG/DL (70-104)
--- NOTE | 2022-03-08 19:30 | NUR ---
CRITICAL RESULT K=2.7, PROVIDER MADE AWARE
[2022-03-08 19:48] LABS: POTASSIUM 2.7 MMOL/L (3.5-5.1)
[2022-03-08] MEDS ORDERED: potassium CL 10mEq/100ml bag 100 ML IV ONE (20:00)
[2022-03-08] MEDS ORDERED: potassium Cl 20 mEq SR tablet PO ONE (20:00)
== END 2022-03-08 21:34 | disposition home or self-care (01) ==
LOC: ER 18:20
DX: E86.0 Dehydration (principal); Z20.822 Contact with and (suspected) exposure to COVID-19; F10.920 Alcohol use, unspecified with intoxication, uncomplicated; K21.9 Gastro-esophageal reflux disease without esophagitis; F31.9 Bipolar disorder, unspecified; F15.10 Other stimulant abuse, uncomplicated; Z87.19 Personal history of other diseases of the digestive system; Z56.0 Unemployment, unspecified; Z79.899 Other long term (current) drug therapy; Y90.9 Presence of alcohol in blood, level not specified
CPT/HCPCS: 36415; 80053; 80320; 82140; 83690; 85025; 87635; 93005; 96365; 99284; C9803; J3480

== ENCOUNTER 2022-07-20 11:02 | Emergency (ER) | payer MEDICAID ==
[~2022-07-20] VITALS: Ht 160 cm; Wt 54.0 kg
[~2022-07-20 11:02] MED LIST changes: -MAGN400T29 PO; -ONDA-103 PO; -PANT20TA18 PO; -PANT40TA54 PO; -PHEN-786 PO; -SERT-434 PO
[2022-07-20 11:04] VITALS: BP 159/87
== END 2022-07-20 13:20 | disposition left against medical advice (07) ==
LOC: ER 11:02
DX: R06.02 Shortness of breath (principal); Z53.21 Procedure and treatment not carried out due to patient leaving prior to being seen by health care provider